=== PATIENT | male | born 1950 | race Caucasian/White ===

== ENCOUNTER 2017-04-13 09:30 | Inpatient (IN) | payer MEDICAID ==
[~2017-04-13] VITALS: Ht 177.8 cm; Wt 98.8 kg
[~2017-04-13 09:30] MED LIST: ALBU8.5H3; ASPI81TA3 PO; ISOS20TA19 PO; METO-448 PO
[2017-04-13] MEDS ORDERED: HYDROmorphONE 1 MG/ML SYG IV STA ×2 (09:52→13:23)
[2017-04-13] MEDS ORDERED: ONDANSETRON 4 MG INJ IV STA ×2 (09:52→13:23)
[2017-04-13 10:14] LABS: BASOPHILS % 0.4 % (0.0-2.0); EOSINOPHILS # 0.1 10^3/ul (0.0-0.5); EOSINOPHILS % 1.2 % (0.0-7.0); HEMATOCRIT 42.4 % (42.0-52.0); HEMOGLOBIN 14.6 g/dl (14.0-18.0); LYMPHOCYTES # 1.3 10^3/ul (0.8-2.9); LYMPHOCYTES % 19.4 % (15.0-51.0); MEAN CORPUSCULAR HEMOGLOBIN 31.3 pg (29.0-33.0); MEAN CORPUSCULAR HGB CONC 34.4 g/dl (32.0-37.0); MEAN PLATELET VOLUME 11.6 fl (7.4-10.4); MONOCYTE # 0.7 10^3/ul (0.3-0.9); MONOCYTES % 10.4 % (0.0-11.0); NEUTROPHIL # 4.7 10^3/ul (1.6-7.5); NEUTROPHILS % 68.3 % (39.0-77.0); PLATELET COUNT 170 10^3/UL (140-415); RED BLOOD COUNT 4.66 10^6/ul (4.70-6.10); WHITE BLOOD COUNT 6.8 10^3/ul (4.8-10.8)
--- NOTE | 2017-04-13 10:28 | ERA ---
ER Documentation Chief Complaint Date/Time DATE: 04/13/17 TIME: 10:27 Chief Complaint ABD PAIN 3 DAYS HPI This is a 66-year-old male who complains of right upper quadrant pain. He says he has a history of gallstones and he feels like he has a gallbladder attack. He is complaining of pain in the epigastric and right upper quadrant with radiation around the right back. He has nausea but no vomiting diarrhea. He states his symptoms for 3 days and the symptoms are worse after meals. No diarrhea but he does have bloating no fever cough shortness of breath chest pain ROS All systems reviewed and are negative except as per history of present illness. Medications Home Meds Reported Medications Aspirin* (Aspirin* Chew) 81 Mg Tab.chew, 81 MG PO DAILY 08/06/12 Isosorbide Dinitrate* (Isosorbide Dinitrate*) 20 Mg Tablet, 20 MG PO TID 08/06/12 Metoprolol Tartrate* (Lopressor*) 25 Mg Tab, 12.5 MG PO BID 08/06/12 Albuterol Sulfate* (Proair HFA*) 8.5 Gm Hfa.aer.ad, PRN 05/05/12 Allergies Allergies: Coded Allergies: Cephalexin (Verified Allergy, 08/06/12) PMhx/Soc History of Surgery: No Anesthesia Reaction: No Hx Neurological Disorder: No Hx Respiratory Disorders: Yes (ASTHMA) Hx Cardiac Disorders: No Hx Psychiatric Problems: No Hx Miscellaneous Medical Probl: Yes (GALLSTONES) Hx Alcohol Use: No Hx Substance Use: No Hx Tobacco Use: No Smoking Status: Never smoker FmHx Family History: No coronary disease Physical Exam Vitals Vital Signs Date Time Temp Pulse Resp B/P Pulse Ox O2 Delivery O2 Flow Rate FiO2 04/13/17 11:34 58 17 134/76 98 Room Air 04/13/17 09:34 98.0 77 18 142/78 99 Physical Exam Const: [Well-developed, well-nourished] Head: [Atraumatic, normocephalic] Eyes: [Normal Conjunctiva, PERRLA, EOMI, normal sclera, no nystagmus] ENT: [Normal External Ears, Nose and Mouth, moist mucus membranes.] Neck: [Full range of motion. No meningismus, no lymphadenopathy.] Resp: [Clear to auscultation bilaterally, no wheezing, rhonchi, rales] Cardio: [Regular rate and rhythm, no murmurs, S1 S2 present] Abd: [Soft, epigastric and right upper quadrant tenderness, non distended. Normal bowel sounds, no guarding or rebound, no pulsitile abdominal masses or bruits] Skin: [No petechiae or rashes, no ecchymosis , no maculopapular rash] Back: [No midline or flank tenderness] Ext: [No cyanosis, or edema, FROM x 4, normal inspection, neurovascularly intact x 4] Neur: [Awake and alert, STR 5/5 x 4, sensation intact x 4, no focal findings, cerebellum intact] Psych: [Normal Mood and Affect] Vital Sign - Last 24 Hours 04/13/17 09:34 Temp 98.0 Pulse 77 Resp 18 B/P 142/78 Pulse Ox 99 Result Diagram: 04/13/17 1000 04/13/17 1000 Results 24 hrs Laboratory Tests Test 04/13/17 10:00 White Blood Count 6.810^3/ul Red Blood Count 4.6610^6/ul Hemoglobin 14.6g/dl Hematocrit 42.4% Mean Corpuscular Volume 91.0fl Mean Corpuscular Hemoglobin 31.3pg Mean Corpuscular Hemoglobin Concent 34.4g/dl Red Cell Distribution Width 12.0% Platelet Count 38771^3/UL Mean Platelet Volume 11.6fl Neutrophils % 68.3% Lymphocytes % 19.4% Monocytes % 10.4% Eosinophils % 1.2% Basophils % 0.4% Nucleated Red Blood Cells % 0.0/100WBC Neutrophils # 4.710^3/ul Lymphocytes # 1.310^3/ul Monocytes # 0.710^3/ul Eosinophils # 0.110^3/ul Basophils # 0.010^3/ul Nucleated Red Blood Cells # 0.010^3/ul Sodium Level 144mmol/L Potassium Level 3.8mmol/L Chloride Level 97mmol/L Carbon Dioxide Level 32mmol/L Anion Gap 19 Blood Urea Nitrogen 24mg/dl Creatinine 0.72mg/dl Glucose Level 158mg/dl Calcium Level 9.5mg/dl Total Bilirubin 1.8mg/dl Direct Bilirubin 0.00mg/dl Indirect Bilirubin 1.8mg/dl Aspartate Amino Transf (AST/SGOT) 378IU/L Alanine Aminotransferase (ALT/SGPT) 243IU/L Alkaline Phosphatase 217IU/L Total Protein 8.1g/dl Albumin 4.4g/dl Globulin 3.70g/dl Albumin/Globulin Ratio 1.18 Lipase 96U/L Current Medications Medications (Trade) Dose Ordered Sig/Charo Route PRN Reason Start Time Stop Time Status Last Admin Dose Admin Hydromorphone HCl (Dilaudid) 1 mg ONCE STAT IV 04/13/17 09:52 04/13/17 09:54 DC 04/13/17 09:58 Ondansetron HCl (Zofran Inj) 4 mg ONCE STAT IV 04/13/17 09:52 04/13/17 09:54 DC 04/13/17 09:58 IV Flush 10 ml 10 ml STK-MED ONCE .ROUTE 04/13/17 12:29 04/13/17 12:30 DC 04/13/17 12:58 Sodium Chloride (NS) 100 ml @ ud STK-MED ONCE .ROUTE 04/13/17 12:29 04/13/17 12:30 DC 04/13/17 12:58 Iohexol (Omnipaque 300mg/ ml) 150 ml STK-MED ONCE .ROUTE 04/13/17 12:29 04/13/17 12:30 DC 04/13/17 12:58 Hydromorphone HCl (Dilaudid) 1 mg ONCE STAT IV 04/13/17 13:23 04/13/17 13:24 DC 04/13/17 13:32 Ondansetron HCl (Zofran Inj) 4 mg ONCE STAT IV 04/13/17 13:23 04/13/17 13:24 DC 04/13/17 13:32 Procedures/MDM PROCEDURE: CT abdomen with and without contrast. Pancreatic protocol. CT pelvis with contrast CLINICAL INDICATION: Suspected pancreatic mass TECHNIQUE: CT scan of the abdomen with an without contrast was performed on a multi-slice CT scanner . The patient was scanned before after administration of 100 cc of Omnipaque-300 intravenous contrast. Imaging was obtained in the arterial and portal venous phase per pancreas protocol. In addition, the pelvis was imaged postcontrast in the portal venous phase. Sagittal and coronal reformatted images were obtained from the axial source images. DLP 2596.9 mGycm. CTDIvol 16.11, 19.6, and 18.3 mGy One or more of the following dose reduction techniques were used: - Automated exposure control. - Adjustment of the mA and/or kV according to patient size. Use of iterative reconstruction technique. COMPARISON: Chest 05/05/2012 FINDINGS: Trace scarring is seen in the lung bases. Coronary artery calcifications are seen in the heart which is mildly enlarged. The gallbladder is contracted with irregular soft tissue thickening enhancement seen throughout the gallbladder which is most pronounced at the fundus which appears to be intimately associated inseparable from the adjacent hepatic parenchyma. There is mild fat stranding seen around the gallbladder with slight hyperenhancement of the common duct. There is a mild amount of intrahepatic biliary ductal dilatation. Coarse calcifications are seen along the hepatic on the prior exam. Previously seen fatty resolved. Is a nonenhancing left hepatic lobe cyst. There is no other evidence of intraparenchymal mass within the liver. The portal vein is intact without thrombus. There is homogeneous density of the pancreas with uniform enhancement. There is moderate fatty replacement of the pancreatic parenchyma. There is no surrounding inflammation and no evidence of abnormal enhancing mass or cystic lesion. There are no enlarged peripancreatic lymph nodes and no evidence of pancreatic ductal dilatation. The spleen is unremarkable without mass. The adrenal glands are within normal limits without mass. The kidneys enhance symmetrically bilaterally without hydronephrosis or perinephric stranding.There are no renal calculi present. There is no bowel obstruction or focal bowel inflammation. The appendix is unremarkable. There is no free air free fluid. There are no enlarged lymph nodes. There is aortic atherosclerosis without aneurysmal dilatation. Degenerative changes are seen in the lumbar spine with no acute osseous abnormality. The prostate is mildly enlarged. RPTAT:AA IMPRESSION: There is irregular thickened appearance of the gallbladder wall which has contracted appearance with generalized enhancement which is most pronounced involving the gallbladder fundus which is intimately associated inseparable from the adjacent hepatic parenchyma. This could represent gallbladder inflammation or the presence of gallbladder neoplasm. There is mild intrahepatic biliary ductal dilatation enlarged appearance of the common duct with hyperenhancement. World can be better assessed with MRCP. There is generalize fatty replacement of the pancreatic parenchyma without a definable pancreatic mass on CT. No evidence of bowel obstruction. Atherosclerotic disease is present with mild cardiomegaly. .Dena Cerda MD, MD Date Time Electronically viewed and signed by .Dena Cerda MD, MD on 04/13/2017 13:41 .J/ CC: ILDA PALAFOX DO Patient has elevated bilirubin and liver function test with a dilated common bile duct at [address] scan does not show any evidence of pancreatic head mass. 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 CLINICAL INDICATION: abdominal pain TECHNIQUE: Multiple real-time images were acquired of the patient's right upper quadrant abdomen and retroperitoneum utilizing a high resolution transducer. COMPARISON: 05/06/2012 , 05/05/12 FINDINGS: The liver demonstrates increased and heterogeneous echogenicity. The liver is normal in size and no focal solid lesions are seen. There is a 9 mm simple cyst in the left lobe of the liver. The liver measures 14.5 cm in length. The portal vein is patent with normal direction of flow. No intrahepatic biliary dilatation is seen. The gallbladder is contracted with multiple calcified stones. There is no pericholecystic fluid or gallbladder wall thickening. The common bile duct measures 13 mm in maximal dimension. There is a possible 3.9 x 2.2 x 2.1 cm hypoechoic mass in the region of the pancreatic head. No free fluid is identified. The right kidney is normal in size, and demonstrate normal echogenicity and cortical thickness. The right kidney measures 11.3 cm in long dimension. There is no evidence of hydronephrosis. There are no kidney stones. RPTAT: AA IMPRESSION: Possible hypoechoic mass in the region of the pancreatic head. Associated dilatation of the CBD measuring 13 mm. Further evaluation with a triple phase pancreas CT is recommended. Cholelithiasis. Fatty infiltration of the liver. Small simple cyst in the left lobe of the liver. A call report was made and the findings discussed with Ilda Ochoa (Jalen) at 04/13/2017 11:38:50 AM. .Onofre Wong MD, Date Time Electronically viewed and signed by .Onofre Wong MD, on 04/13/2017 11: 41 .S/ CC: ILDA PALAFOX DO Departure Diagnosis: Primary Impression: Gallstones Additional Impression: Elevated LFTs Condition: Stable ILDA PALAFOX DO Apr 13, 2017 10:28
[2017-04-13 10:43] LABS: ALBUMIN 4.4 g/dl (3.3-4.9); ALBUMIN/GLOBULIN RATIO 1.18; BILIRUBIN,INDIRECT 1.8 mg/dl (0-1.1); BILIRUBIN,TOTAL 1.8 mg/dl (0.2-1.3); CALCIUM 9.5 mg/dl (8.4-10.2); CREATININE 0.72 mg/dl (0.61-1.24); POTASSIUM 3.8 mmol/L (3.5-5.1); TOTAL PROTEIN 8.1 g/dl (6.1-8.1)
--- NOTE | 2017-04-13 11:41 | RADRPT ---
PROCEDURE: US Abdomen. CLINICAL INDICATION: abdominal pain TECHNIQUE: Multiple real-time images were acquired of the patient's right upper quadrant abdomen a nd retroperitoneum utilizing a high resolution transducer. COMPARISON: 05/06/2012 , 05/05/12 FINDINGS: The liver demonstrates increased and heterogeneous echogenicity. The liver is normal in size and no focal solid lesions are seen. There is a 9 mm simple cyst in the left lobe of the liver. The liver measures 14.5 cm in length. The portal vein is patent with normal direction of flow. No intrahepati c biliary dilatation is seen. The gallbladder is contracted with multiple calcified stones. There is no pericholecystic fluid or gallbladder wall thickening. The common bile duct measures 13 mm in maximal dimension. There is a possible 3.9 x 2.2 x 2.1 cm hypoechoic mass in the region of the pancreatic head. No free fluid is identified. The right kidney is normal in size, and demonstrate normal echogenicity and cortical thickness. The right kidney measures 11.3 cm in long dimension. There is no evidence of hydronephrosis. There are no kidney stones. RPTAT: AA IMPRESSION: Possible hypoechoic mass in the region of the pancreatic head. Associated dilatation of the CBD aston suring 13 mm. Further evaluation with a triple phase pancreas CT is recommended. Cholelithiasis. Fatty infiltration of the liver. Small simple cyst in the left lobe of the liver. A call report was made and the findings discussed with Ilda Ochoa (Jalen) at 04/13/2017 11: 38:50 AM. .Onofre Wong MD, Date Time Electronically viewed and signed by .Onofre Wong MD, MD on 04/13/2017 11:41 .S/
[2017-04-13] MEDS ORDERED: IOHEXOL 300MG/ML 150 ML BTL ONE (12:29)
[2017-04-13] MEDS ORDERED: SOD CHLORIDE 0.9% 100 ML ONE (12:29)
--- NOTE | 2017-04-13 13:41 | RADRPT ---
PROCEDURE: CT abdomen with and without contrast. Pancreatic protocol. CT pelvis with contrast CLINICAL INDICATION: Suspected pancreatic mass TECHNIQUE: CT scan of the abdomen with an without [facility] The patient was scanned before after administration of 100 cc of Omnipaque-300 intravenous con trast. Imaging was obtained in the arterial and portal venous phase per pancreas protocol. In addit ion, the pelvis was imaged postcontrast in the portal venous phase. Sagittal and coronal reformatte d images were obtained from the axial source images. DLP 2596.9 mGycm. CTDIvol 16.11, 19.6, and 18.3 mGy One or more of the following dose reduction techniques were used: - Automated exposure control. - Adjustment of the mA and/or kV according to patient size. Use of iterative reconstruction technique. COMPARISON: Chest 05/05/2012 FINDINGS: Trace scarring is seen in the lung bases. Coronary artery calcifications are seen in the heart whic h is mildly enlarged. The gallbladder is contracted with irregular soft tissue thickening enhancement seen throughout the gallbladder which is most pronounced at the fundus which appears to be intimately associated insepar able from the adjacent hepatic parenchyma. There is mild fat stranding seen around the gallbladder with slight hyperenhancement of the common duct. There is a mild amount of intrahepatic biliary uri samara dilatation. Coarse calcifications are seen along the hepatic on the prior exam. Previously see n fatty resolved. Is a nonenhancing left hepatic lobe cyst. There is no other evidence of intrapar enchymal mass within the liver. The portal vein is intact without thrombus. There is homogeneous density of the pancreas with uniform enhancement. There is moderate fatty repl acement of the pancreatic parenchyma. There is no surrounding inflammation and no evidence of abnor mal enhancing mass or cystic lesion. There are no enlarged peripancreatic lymph nodes and no eviden ce of pancreatic ductal dilatation. The spleen is unremarkable without mass. The adrenal glands are within normal limits without mass. The kidneys enhance symmetrically bilaterally without hydronephrosis or perinephric stranding.There are no renal calculi present. There is no bowel obstruction or focal bowel inflammation. The appendix is unremarkable. There is no free air free fluid. There are no enlarged lymph nodes. There is aortic atherosclerosis without aneurysmal dilatation. Degenerative changes are seen in t he lumbar spine with no acute osseous abnormality. The prostate is mildly enlarged. RPTAT:AA IMPRESSION: There is irregular thickened appearance of the gallbladder wall which has contracted appearance with generalized enhancement which is most pronounced involving the gallbladder fundus which is intimate ly associated inseparable from the adjacent hepatic parenchyma. This could represent gallbladder in flammation or the presence of gallbladder neoplasm. There is mild intrahepatic biliary ductal dilatation enlarged appearance of the common duct with hyp erenhancement. World can be better assessed with MRCP. There is generalize fatty replacement of the pancreatic parenchyma without a definable pancreatic ma ss on CT. No evidence of bowel obstruction. Atherosclerotic disease is present with mild cardiomegaly. .Dena Cerda MD, MD Date Time Electronically viewed and signed by .Dena Cerda MD, on 04/13/2017 13:41 .Mark/
[2017-04-13] MEDS: SOD CHLORIDE 0.9% 1,000 ML IV SCH ×2 (13:58→17:18)
[2017-04-13] MEDS ORDERED: ACETAMINOPHEN 325 MG TAB PO PRN (14:00)
[2017-04-13] MEDS ORDERED: ONDANSETRON 4 MG INJ IV PRN ×2 (14:00→16:00)
--- NOTE | 2017-04-13 14:51 | CONS ---
Date/Time of Note Date/Time of Note DATE: 04/13/17 TIME: 14:29 Assessment/Plan Assessment/Plan Additional Assessment/Plan Assessment * Abdominal pain right upper quadrant Ultrasound Possible hypoechoic mass in the region of the pancreatic head. Associated dilatation of the CBD measuring 13 mm. Further evaluation with a triple phase pancreas CT is recommended. Cholelithiasis. Fatty infiltration of the liver. Small simple cyst in the left lobe of the liver. CT abdomen/pelvis There is irregular thickened appearance of the gallbladder wall There is mild intrahepatic biliary ductal dilatation enlarged appearance of the common duct with hyperenhancement. World can be better assessed with MRCP. There is generalize fatty replacement of the pancreatic parenchyma without a definable pancreatic mass on CT. * Elevated transaminase * Hypertension * History of asthma Plan * Pain control * NPO * MRCP * Case discussed with DR Henry * Further orders will depend on clinical course Consultation Date/Type/Reason Admit Date/Time Date of Consultation: Apr 13, 2017 Type of Consultation: Gastroenterology Reason for Consultation elevated tranaminase/suspected pancreatic mass Referring Provider: VARGAS PALAFOX of Present Illness 66 year old male with past medical history of hypertension,prediabetes presented in the emergency room complaining right upper quadrant pain.Present condition apparently started 3 days prior to consult as right upper quadrant and epigastric pain ,colicky,radiating to the back with associated nausea but no vomiting,fever,hematemesis,hematochezia,dyspnea,changes of bowel habits,nor intake of medications such as herbal medicines.Laboratory workup revealed WBC 8.8 ,no anemia hemoglobin 14.6,elevated transaminases Total bilirubin 1.8,AST 378,ALT 243,Alkaline phosphatase 217,lipase 96.Ultrasound Possible hypoechoic mass in the region of the pancreatic head. Associated dilatation of the CBD measuring 13 mm.Further evaluation with a triple phase pancreas CT is recommended.Cholelithiasis.Fatty infiltration of the liver. Small simple cyst in the left lobe of the liver.CT abdomen There is irregular thickened appearance of the gallbladder wall which has contracted appearance with generalized enhancement which is most pronounced involving the gallbladder fundus which is intimately associated inseparable from the adjacent hepatic parenchyma. This could represent gallbladder inflammation or the presence of gallbladder neoplasm. There is mild intrahepatic biliary ductal dilatation enlarged appearance of the common duct with hyperenhancement. World can be better assessed with MRCP. There is generalize fatty replacement of the pancreatic parenchyma without a definable pancreatic mass on CT. No evidence of bowel obstruction. Atherosclerotic disease is present with mild cardiomegaly. Constitutional: improved, no complaints Eyes: no complaints ENT: no complaints Respiratory: no complaints Cardiovascular: no complaints Gastrointestinal: nausea, pain Genitourinary: no complaints Musculoskeletal: no complaints Skin: no complaints Neurologic: no complaints Endocrine: no complaints Lymphatic: no complaints Psychological: nl mood/affect, no complaints Immunologic: no complaints Past Medical History Medical History: hypertension, other (asthma) Past Surgical History Past Surgical Hx: no surgical history Family History Significant Family History: no pertinent family hx Social History Alcohol Use: rarely Smoking Status: Never smoker Exam/Review of Systems Vital Signs Vitals Vital Signs Date Time Temp Pulse Resp B/P Pulse Ox O2 Delivery O2 Flow Rate FiO2 04/13/17 11:34 58 17 134/76 98 Room Air 04/13/17 09:34 98.0 Exam Constitutional: alert, oriented, well developed Psych: nl mood/affect, no complaints Head: atraumatic, normocephalic Eyes: EOMI, PERRL, nl conjunctiva, nl lids, nl sclera ENMT: nl external ears & nose, nl lips & teeth, nl nasal mucosa & septum Neck: non-tender, supple Respiratory: clear to auscultation, normal air movement Cardiovascular: nl pulses, regular rate and rhythm Gastrointestinal: nl liver, spleen, soft, tender (right upper ) Musculoskeletal: nl extremities to inspection, nl gait and stance Extremities: normal pulses Neurological: nl mental status, nl speech, nl strength Skin: nl turgor, No rash or lesions Lymph: nl lymph nodes Results Result Diagram: 04/13/17 1000 04/13/17 1000 Results 24 hrs Laboratory Tests Test 04/13/17 10:00 White Blood Count 6.8 Red Blood Count 4.66 L Hemoglobin 14.6 Hematocrit 42.4 Mean Corpuscular Volume 91.0 Mean Corpuscular Hemoglobin 31.3 Mean Corpuscular Hemoglobin Concent 34.4 Red Cell Distribution Width 12.0 Platelet Count 170 Mean Platelet Volume 11.6 H Neutrophils % 68.3 Lymphocytes % 19.4 Monocytes % 10.4 Eosinophils % 1.2 Basophils % 0.4 Nucleated Red Blood Cells % 0.0 Neutrophils # 4.7 Lymphocytes # 1.3 Monocytes # 0.7 Eosinophils # 0.1 Basophils # 0.0 Nucleated Red Blood Cells # 0.0 Sodium Level 144 Potassium Level 3.8 Chloride Level 97 Carbon Dioxide Level 32 H Anion Gap 19 H Blood Urea Nitrogen 24 H Creatinine 0.72 Glucose Level 158 Calcium Level 9.5 Total Bilirubin 1.8 H Direct Bilirubin 0.00 Indirect Bilirubin 1.8 H Aspartate Amino Transf (AST/SGOT) 378 H Alanine Aminotransferase (ALT/SGPT) 243 H Alkaline Phosphatase 217 H Total Protein 8.1 Albumin 4.4 Globulin 3.70 H Albumin/Globulin Ratio 1.18 Lipase 96 Medications Medications Current Medications Sodium Chloride (NS) 1,000 ml @ 80 mls/hr [id number] IV ; Start 04/13/17 at 13:58 ; Stop 04/14/17 at 02:27 LUIS GAMBLE NP Apr 13, 2017 14:39
[2017-04-13] MEDS ORDERED: morphine 2 MG INJ IV STA (15:20)
[2017-04-13 15:22] VITALS: BP 140/93; PULSE 69; RESP 18
[2017-04-13 15:32] VITALS: Ht 177.8 cm; Wt 98.8 kg
[2017-04-13 15:39] VITALS: BP 140/93; RESP 19
--- NOTE | 2017-04-13 15:45 | HP ---
Date/Time of Note Date/Time of Note DATE: 04/13/17 TIME: 15:43 Assessment/Plan VTE Prophylaxis VTE Prophylaxis Intervention: SCD's Lines/Catheters IV [facility] Saline Lock Assessment/Plan Chief Complaint/Hosp Course 1. Abdominal pain. Imaging showing cholelithiasis. Imaging also revealed possible hypoechoic mass in the region of the pancreatic head with associated common bile duct dilatation. The patient will be kept n.p.o. The patient will be given adequate pain control. Gastroenterology consult and surgical consult has been obtained. MRCP will be obtained. 2. Transaminitis. Most probably secondary to #1. Gastroenterology and surgery consult has been obtained. 3. Essential hypertension. The patient will be started on appropriate antihypertensives. 4. History of abnormal cardiac stress test. The patient denies any cardiac problems. The patient's aspirin will be put on hold because of a any possible interventions in the near future. 5. Asthma. Patient has no evidence of any acute bronchospasms. He will be maintained on as needed inhaled bronchodilators for any episodes of dyspnea. 6. Obesity. BMI of 31.3 kg/m. Fasting lipid panel and hemoglobin A1c will be obtained. Plan: The patient will be admitted to inpatient medical surgical floor. The patient will be kept n.p.o. . The patient will be started on DVT prophylaxis and gastrointestinal prophylaxis. The patient will remain a full code. Activities will be as tolerated. The rest of the patient's management will be based on the clinical course, inputs from consultants, and the results of diagnostic studies. Based on the patient's clinical presentation, he most probably requires at least 2 midnights' stay for further management and evaluation of his clinical presentation. The case and management of this patient was fully discussed with Dr. Graff. Problems: HPI/ROS Admit Date/Time Admit Date/Time Hx of Present Illness Reason for admission: Abdominal pain. Consultants 1. Tolu Henry MD, Gastroenterology. 2. Ryan Monahan MD, General Surgery. This is a 66-year-old Indonesian-speaking male with past medical history of essential hypertension, asthma, cholelithiasis who had refused gallbladder surgery before, and abnormal cardiac stress test who refused cardiac catheterization before, who came to the emergency room with chief complaint of abdominal pain that has been going on for the past 3 days. The patient verbalized the abdominal pain as diffuse. The patient verbalized the pain radiating to the back. The patient verbalized associated nausea but he denied any vomiting. Patient verbalized that the symptoms are worse after he has anything by mouth. The patient denied any diarrhea. He complained of bloating. He denied any fevers, chills, or diaphoresis. The patient denied any dyspnea. In the emergency room, the patient was noticed to have hyperbilirubinemia with transaminitis. The patient underwent a gallbladder ultrasound that showed possible hypoechoic mass in the region of the pancreatic head. There was also associated dilatation of the common bile duct measuring 13 mm. The abdominal ultrasound revealed cholelithiasis. The patient subsequently underwent a CT scan of the abdomen and pelvis that showed irregular thickened appearance of the gallbladder wall which has contracted appearance with generalized enhancement which is most pronounced involving the gallbladder fundus which is intimately associated inseparable from the adjacent hepatic parenchyma. This could represent gallbladder inflammation or the presence of a gallbladder neoplasm. There is mild intrahepatic biliary ductal dilatation and enlarged appearance of the common bile duct. ROS Eyes: no complaints ENT: no complaints Respiratory: no complaints Cardiovascular: no complaints Gastrointestinal: nausea, pain Genitourinary: no complaints Musculoskeletal: no complaints Skin: no complaints Neurologic: no complaints Endocrine: no complaints Lymphatic: no complaints Psychological: nl mood/affect, no complaints Immunologic: no complaints PMH/Family/Social Past Medical History Medical History: hypertension, other (Asthma, pre-diabetes, cholelithiasis) Past Surgical History Past Surgical Hx: no surgical history Social History Alcohol Use: rarely Smoking Status: Never smoker Drug Use: none Exam/Review of Systems Vital Signs Vitals Vital Signs Date Time Temp Pulse Resp B/P Pulse Ox O2 Delivery O2 Flow Rate FiO2 04/13/17 15:39 97.5 69 19 140/93 96 04/13/17 15:22 Room Air Exam Exam General: Morbidly obese 66 year-old male lying in bed in no apparent distress. HEENT: Normocephalic, atraumatic. Eyes: Anicteric sclerae, conjunctivae clear. ENT: Nasal septum midline, oral mucosa moist. Neck supple, no JVD noticed. Respiratory: Bilaterally clear breath sounds. No use of accessory muscles of respiration. No adventitious breath sounds. Cardiovascular: S1, S2 heard. No murmurs or gallops. Abdomen: Soft. Obese. Diffuse tenderness. Bowel sounds positive in all 4 quadrants. Genitourinary: Deferred. Extremities: No cyanosis, no clubbing, no edema. Peripheral pulses palpable. Neurologic: Cranial nerves II through XII grossly intact. The patient is awake, alert, and oriented. Skin: Normal skin turgor. No skin rashes. Labs Result Diagram: 04/13/17 1000 04/13/17 1000 Medications Medications Current Medications Sodium Chloride (NS) 1,000 ml @ 80 mls/hr [id number] IV ; Start 04/13/17 at 13:58 ; Stop 04/14/17 at 02:27 Ondansetron HCl (Zofran Inj) 4 mg Q6H PRN IV NAUSEA AND/OR VOMITING; Start at 16:00; Status UNV Morphine Sulfate (morphine) 4 mg Q4H PRN IV SEVERE PAIN LEVEL 7-10; Start 04/13 at 16:00; Status UNV Famotidine (Pepcid Iv) 20 mg Q12 IV ; Start 04/13/17 at 21:00; Status UNV Procedures Procedures CT Abdomen & Pelvis IMPRESSION: There is irregular thickened appearance of the gallbladder wall which has contracted appearance with generalized enhancement which is most pronounced involving the gallbladder fundus which is intimately associated inseparable from the adjacent hepatic parenchyma. This could represent gallbladder inflammation or the presence of gallbladder neoplasm. There is mild intrahepatic biliary ductal dilatation enlarged appearance of the common duct with hyperenhancement. World can be better assessed with MRCP. There is generalize fatty replacement of the pancreatic parenchyma without a definable pancreatic mass on CT. No evidence of bowel obstruction. Atherosclerotic disease is present with mild cardiomegaly. Gallbladder Ultrasound IMPRESSION: Possible hypoechoic mass in the region of the pancreatic head. Associated dilatation of the CBD measuring 13 mm. Further evaluation with a triple phase pancreas CT is recommended. Cholelithiasis. Fatty infiltration of the liver. Small simple cyst in the left lobe of the liver. ADONIS BLANCO NP Apr 13, 2017 15:45
[2017-04-13] MEDS ORDERED: NACL 0.9% 3 ML SYG IV SCH (16:00)
[2017-04-13 16:52] VITALS: BP 143/90; RESP 19
[2017-04-13 16:55] LABS: BARBITURATES Negative (NEGATIVE); BENZODIAZEPINES Negative (NEGATIVE); CANNABINOIDS Negative (NEGATIVE); COCAINE Negative (NEGATIVE); OPIATES Positive (NEGATIVE)
[2017-04-13] MEDS ORDERED: ALBUTEROL 18 GM INHALER INH PRN (17:00)
[2017-04-13] MEDS: morphine 2 MG INJ IV PRN ×2 (17:18→23:17)
--- NOTE | 2017-04-13 17:25 | RADRPT ---
PROCEDURE: MRI abdomen without contrast; MRCP CLINICAL INDICATION: Abnormal CT TECHNIQUE: Multiplanar, multisequence imaging of the abdomen was obtained without contrast. Imagi ng includes axial T2, T2 fat sat, in and out of phase gradient images, and noncontrast T1 fat-satura danii images. In addition, a dedicated high T2 signal intensity MRCP images were obtained in multiple planes with 3-D reconstructions. COMPARISON: CT abdomen 04/13/2017 FINDINGS: MRCP: Then seen is contracted and thickened appearance of the gallbladder. There is a gallstones seen wit hin the gallbladder fundus measuring 7 mm. There is mild intrahepatic and extrahepatic diffuse bili venecia ductal enlargement of the common duct measures up to 11 mm. There is a stone within the distal common duct that measures 10 mm causing obstruction. There is no pancreatic ductal dilatation. MRI abdomen: There is diffuse fatty replacement majority of the pancreas without evidence of gross focal lesion. No surrounding peripancreatic inflammatory changes are present. There is uniform signal intensity of the liver without gross evidence of mass. There is a T2 hyperintense structure within the left he patic lobe consistent with a cyst. Evaluation for enhancing masses is limited without IV contrast. There is a flow void seen within the portal vein without gross evidence for portal vein thrombus. The kidneys are symmetric without hydronephrosis or mass. Left-sided renal cyst is present. The adr enal glands are within normal limits. The pancreas is uniform without surrounding inflammation. There is no evidence of bowel obstruction or inflammatory changes of the mesentery. Aortic atheroscl erosis is seen. There are degenerative changes within the lumbar spine. IMPRESSION: Mild diffuse intrahepatic and extrahepatic biliary ductal dilatation is seen secondary to obstructio n secondary to a 10 mm distal common duct stone. The gallbladder is contracted around a gallstone with continued gallbladder wall thickening. Fatty replacement of the majority the pancreatic parenchyma. Atherosclerotic disease. RPTAT: AA .Dena Cerda MD, MD Date Time Electronically viewed and signed by .Dena Cerda MD, MD on 04/13/2017 17:24 .Mark/
[2017-04-13] MEDS ORDERED: PIPER-TAZO 3.375 GM IV (PMX) 100 ML IVPB SCH (18:00)
[2017-04-13] MEDS: PIPER-TAZO 3.375 GM IV (PMX) 100 ML IVPB SCH ×2 (18:04→23:34)
[2017-04-13 19:40] VITALS: BP 96/61; RESP 19
[2017-04-13] MEDS: FAMOTIDINE 20 MG TAB PO SCH (20:34)
[2017-04-13 20:55] VITALS: BP_SYST 80; BP_SYST 86; BP_DIAS 49; BP_DIAS 64; PULSE 133; PULSE 143; RESP 19; RESP 20
[2017-04-13] MEDS ORDERED: SOD CHLORIDE 0.9% 1,000 ML IV ONE ×2 (21:00→23:30)
[2017-04-13] MEDS: ISOSORBIDE DINITRATE 20 MG TAB PO SCH (21:00)
[2017-04-13] MEDS: METOPROLOL 25 MG TAB PO SCH (21:00)
[2017-04-13 23:02] VITALS: BP 107/70; PULSE 99; RESP 20
[2017-04-14] VITALS (26 sets, daily range): BP systolic 95–139; BP diastolic 60–82; PULSE 85–110; RESP 14–28
[2017-04-14] MEDS ORDERED: IBUPROFEN 600 MG TAB PO ONE (02:30)
[2017-04-14] MEDS: SOD CHLORIDE 0.9% 1,000 ML IV SCH ×2 (02:43→11:54)
[2017-04-14] MEDS: PIPER-TAZO 3.375 GM IV (PMX) 100 ML IVPB SCH ×4 (05:28→23:51)
[2017-04-14 05:44] LABS: ABNORMAL IP MESSAGE 1; BASOPHILS % 0.1 % (0.0-2.0); HEMATOCRIT 37.6 % (42.0-52.0); HEMOGLOBIN 12.7 g/dl (14.0-18.0); LYMPHOCYTES # 0.3 10^3/ul (0.8-2.9); LYMPHOCYTES % 2.5 % (15.0-51.0); MEAN CORPUSCULAR HEMOGLOBIN 31.1 pg (29.0-33.0); MEAN CORPUSCULAR HGB CONC 33.8 g/dl (32.0-37.0); MEAN CORPUSCULAR VOLUME 91.9 fl (82.0-101.0); MEAN PLATELET VOLUME 11.9 fl (7.4-10.4); MONOCYTE # 0.3 10^3/ul (0.3-0.9); MONOCYTES % 2.5 % (0.0-11.0); NEUTROPHIL # 10.2 10^3/ul (1.6-7.5); POSITIVE DIFF @See below; RED BLOOD COUNT 4.09 10^6/ul (4.70-6.10); RED CELL DISTRIBUTION WIDTH 12.6 % (11.5-14.5); WHITE BLOOD COUNT 10.8 10^3/ul (4.8-10.8)
[2017-04-14 05:51] LABS: PLATELET COUNT 135 10^3/UL (140-415)
[2017-04-14 05:54] LABS: INR 1.25; PROTIME 15.8 Sec (12.2-14.2); PT RATIO 1.2
[2017-04-14 05:55] LABS: PARTIAL THROMBOPLASTIN TIME 28.1 Sec (25.0-35.0)
[2017-04-14 06:01] LABS: CHOL/HDL RATIO 2.1 RATIO; MAGNESIUM 1.6 mg/dl (1.7-2.5); PHOSPHORUS 3.6 mg/dl (2.5-4.9)
[2017-04-14 06:11] LABS: ALBUMIN 3.7 g/dl (3.3-4.9); ALBUMIN/GLOBULIN RATIO 1.12; BILIRUBIN,DIRECT 1.3 mg/dl (0.00-0.20); BILIRUBIN,INDIRECT 3.3 mg/dl (0-1.1); BILIRUBIN,TOTAL 4.6 mg/dl (0.2-1.3); CREATININE 0.95 mg/dl (0.61-1.24); POTASSIUM 3.5 mmol/L (3.5-5.1)
[2017-04-14] MEDS ORDERED: SUCCINYLCHOLINE CHLORIDE 100 MG/5 ML SYG IV ONE (07:00)
[2017-04-14] MEDS ORDERED: ASPIRIN 81 MG TAB PO SCH (09:00)
[2017-04-14] MEDS: ISOSORBIDE DINITRATE 20 MG TAB PO SCH ×3 (09:00→21:00)
[2017-04-14] MEDS: METOPROLOL 25 MG TAB PO SCH ×2 (09:00→21:00)
--- NOTE | 2017-04-14 09:05 | CONS ---
Date/Time of Note Date/Time of Note DATE: 04/14/17 TIME: 08:24 Assessment/Plan Assessment/Plan Chief Complaint/Hosp Course 1. Choledocholithiasis: MRCP: Mild diffuse intrahepatic and extrahepatic biliary ductal dilatation is seen secondary to obstruction secondary to a 10 mm distal common duct stone -npo -ercp per gi -pain management 2. Cholelithiasis with cholecystitis: wbc increasing, fevers, abdominal pain, gallbladder wall thickening -abx -as above -poss cholecystectomy 3. Transaminitis: 2/2 above increasing -as above 4. Normocytic anemia: likely dilutional -monitor and transfuse as needed 5. Pancreatic lipomatosis: MRCP: Fatty replacement of the majority the pancreatic parenchyma -weight loss encouraged -medical management 6. Prediabetes with Hga1C:6.4 -diet and lifestyle modification -weight loss encouraged 7. Obesity: BMI 31 -diet and lifestyle modification 8.Asthma history -medical management Patient seen and examined in collaboration with Dr. Ryan Monahan. Thank you. Problems: Consultation Date/Type/Reason Admit Date/Time Date of Consultation: Apr 14, 2017 Type of Consultation: surgical Reason for Consultation cholelithiasis, cholecystitis Referring Provider: ADONIS BLANCO NP Hx of Present Illness Jasvir Parham is a 66 yo man who presented to the emergency room with chief complaint of abdominal pain x 3 days. He describes abdominal pain as diffuse with radiation to the back. Associated symptoms include nausea and bloating but he denied any vomiting or diarrhea. He denied any fevers, chills, or diaphoresis, dyspnea. Aggrevating symptoms include meals. Lab work revealed hyperbilirubinemia with transaminitis. Gallbladder ultrasound that showed possible hypoechoic mass in the region of the pancreatic head. There was also associated dilatation of the common bile duct measuring 13 mm. The abdominal ultrasound revealed cholelithiasis and a possible hypoechoic mass in the region of the pancreatic head. CT scan of the abdomen and pelvis that showed irregular thickened appearance of the gallbladder wall patient has a contracted appearance with generalized enhancement which is most pronounced involving the gallbladder fundus with associated interrupted inseparable from the adjacent hepatic parenchyma. This could represent gallbladder inflammation or the presence of a gallbladder neoplasm. Surgical consult was called to evaluate. Constitutional: No chills, No febrile Eyes: No visual change ENT: No sore throat Respiratory: No cough, No shortness of breath Cardiovascular: No edema, No lightheadedness Gastrointestinal: nausea, pain, No constipation, No vomiting Genitourinary: No dysuria, No hematuria Musculoskeletal: No bone/joint pain Skin: No bruising, No erythema Neurologic: No dizziness, No headache Psychological: nl mood/affect Immunologic: no complaints Past Medical History Medical History: hypertension, other (Asthma, pre-diabetes, cholelithiasis, obesity) Past Surgical History Past Surgical Hx: no surgical history Family History Significant Family History: no pertinent family hx Social History Alcohol Use: rarely Smoking Status: Never smoker Drug Use: none Exam/Review of Systems Vital Signs Vitals Vital Signs Date Time Temp Pulse Resp B/P Pulse Ox O2 Delivery O2 Flow Rate FiO2 04/14/17 08:13 98.0 71 19 101/60 98 04/14/17 02:36 Room Air Intake and Output 04/13/17 04/13/17 04/14/17 15:00 23:00 07:00 Intake Total 420 ml 2400 ml Output Total 400 ml 400 ml Balance 20 ml 2000 ml Exam Constitutional: alert, oriented, well developed Psych: nl mood/affect Head: atraumatic, normocephalic Eyes: nl lids, nl sclera ENMT: mucosa pink and moist, nl nasal mucosa & septum Respiratory: normal air movement Cardiovascular: nl pulses, regular rate and rhythm, No edema Gastrointestinal: bowel sounds, other (umbilical hernia), rebound or guarding, soft, tender Genitourinary - Male: nl penis Musculoskeletal: nl extremities to inspection Extremities: normal pulses Neurological: nl mental status, nl speech, nl strength Skin: rash or lesions Results Result Diagram: 04/14/1751104/14/17511 Results 24 hrs Laboratory Tests Test 04/13/17 10:00 04/13/17 16:09 04/13/17 16:11 04/13/17 16:15 White Blood Count 6.8 Red Blood Count 4.66 L Hemoglobin 14.6 Hematocrit 42.4 Mean Corpuscular Volume 91.0 Mean Corpuscular Hemoglobin 31.3 Mean Corpuscular Hemoglobin Concent 34.4 Red Cell Distribution Width 12.0 Platelet Count 170 Mean Platelet Volume 11.6 H Neutrophils % 68.3 Lymphocytes % 19.4 Monocytes % 10.4 Eosinophils % 1.2 Basophils % 0.4 Nucleated Red Blood Cells % 0.0 Neutrophils # 4.7 Lymphocytes # 1.3 Monocytes # 0.7 Eosinophils # 0.1 Basophils # 0.0 Nucleated Red Blood Cells # 0.0 Sodium Level 144 Potassium Level 3.8 Chloride Level 97 Carbon Dioxide Level 32 H Anion Gap 19 H Blood Urea Nitrogen 24 H Creatinine 0.72 Glucose Level 158 Calcium Level 9.5 Total Bilirubin 1.8 H Direct Bilirubin 0.00 Indirect Bilirubin 1.8 H Aspartate Amino Transf (AST/SGOT) 378 H Alanine Aminotransferase (ALT/SGPT) 243 H Alkaline Phosphatase 217 H Total Protein 8.1 Albumin 4.4 Globulin 3.70 H Albumin/Globulin Ratio 1.18 Lipase 96 Hemoglobin A1c 6.4 H Alpha Fetoprotein 2.14 Carcinoembryonic Antigen 3.5 Free Thyroxine 1.51 Thyroid Stimulating Hormone (TSH) 2.150 Urine Opiates Screen Positive Urine Barbiturates Negative Urine Amphetamines Screen Negative Urine Benzodiazepines Screen Negative Urine Cocaine Screen Negative Urine Cannabinoids Negative Test 04/14/17 05:11 04/14/17 05:12 Prothrombin Time 15.8 H Prothrombin Time Ratio 1.2 INR International Normalized Ratio 1.25 Activated Partial Thromboplast Time 28.1 White Blood Count 10.8 # Red Blood Count 4.09 L Hemoglobin 12.7 L Hematocrit 37.6 L Mean Corpuscular Volume 91.9 Mean Corpuscular Hemoglobin 31.1 Mean Corpuscular Hemoglobin Concent 33.8 Red Cell Distribution Width 12.6 Platelet Count 135 #L Mean Platelet Volume 11.9 H Neutrophils % 94.0 H Lymphocytes % 2.5 L Monocytes % 2.5 Eosinophils % 0.0 Basophils % 0.1 Nucleated Red Blood Cells % 0.0 Neutrophils # 10.2 H Lymphocytes # 0.3 L Monocytes # 0.3 Eosinophils # 0.0 Basophils # 0.0 Nucleated Red Blood Cells # 0.0 Sodium Level 140 Potassium Level 3.5 Chloride Level 105 Carbon Dioxide Level 24 Anion Gap 15 Blood Urea Nitrogen 20 Creatinine 0.95 Glucose Level 104 # Calcium Level 8.0 L Phosphorus Level 3.6 Magnesium Level 1.6 L Total Bilirubin 4.6 #H Direct Bilirubin 1.30 #H Indirect Bilirubin 3.3 H Aspartate Amino Transf (AST/SGOT) 488 H Alanine Aminotransferase (ALT/SGPT) 594 H Alkaline Phosphatase 183 H Total Protein 7.0 # Albumin 3.7 Globulin 3.30 H Albumin/Globulin Ratio 1.12 Triglycerides Level 58 Cholesterol Level 76 L LDL Cholesterol, Calculated 29 HDL Cholesterol 35 Cholesterol/HDL Ratio 2.1 Amylase Level 53 Lipase 28 Medications Medications Current Medications Ondansetron HCl (Zofran Inj) 4 mg Q6H PRN IV NAUSEA AND/OR VOMITING; Start at 16:00 Morphine Sulfate (morphine) 4 mg Q4H PRN IV SEVERE PAIN LEVEL 7-10 Last administered on 04/13/17 23:17; Admin Dose 4 MG; Start 04/13/17 at 16:00 Famotidine (Pepcid) 20 mg Q12 PO Last administered on 04/13/17 20:34; Admin Dose 20 MG; Start 04/13/17 at 21:00 Isosorbide Dinitrate (Isordil) 20 mg TID PO ; Start 04/13/17 at 21:00 Metoprolol Tartrate 12.5 mg 12.5 mg BID PO ; Start 04/13/17 at 21:00 Piperacillin Sod/ Tazobactam Sod 100 ml @ 200 mls/hr Q6 IVPB Last administered on 04/14/17 05:28; Admin Dose 200 MLS/HR; Start 04/13/17 at 18:30 Sodium Chloride (NS) 1,000 ml @ 80 mls/hr [id number] IV Last administered on 04/14 02:43; Admin Dose 80 MLS/HR; Start 04/14/17 at 03:00 SJ HOWELL NP Apr 14, 2017 08:34
[2017-04-14] MEDS: FAMOTIDINE 20 MG TAB PO SCH (09:26)
[2017-04-14] MEDS: KETOROLAC 30 MG INJ IV PRN (11:26)
[2017-04-14] MEDS ORDERED: MAGNESIUM SULFATE 2 GM/50 ML 50 ML IVPB ONE (11:30)
[2017-04-14] MEDS: morphine 2 MG INJ IV PRN (12:19)
[2017-04-14] MEDS ORDERED: hydrALAzine 20 MG INJ IV PRN ×2 (12:30→19:30)
[2017-04-14] MEDS ORDERED: HYDROmorphONE 1 MG/ML SYG IV ONE (12:30)
[2017-04-14] MEDS ORDERED: ACETAMINOPHEN 325 MG TAB PO PRN (12:30)
[2017-04-14] MEDS: ALBUTEROL/IPRATROPIUM (NEB) 3 ML AMP HHN PRN (12:47)
--- NOTE | 2017-04-14 14:54 | PN ---
Date/Time of Note Date/Time of Note DATE: 04/14/17 TIME: 14:48 Assessment/Plan VTE Prophylaxis VTE Prophylaxis Intervention: ambulation, SCD's Lines/Catheters IV Catheter Type (from [facility]): Peripheral IV Assessment/Plan Chief Complaint/Hosp Course Assessment and plan 1. Abdominal pain. Patient did have MRI of the abdomen that did show mild diffuse intrahepatic and extra hepatic biliary ductal dilation secondary to a 10 mm distal common duct stone. Follow-up with GI recommendations. Likely will need ERCP. 2. Transaminitis secondary to #1. Continue IV fluids. Await GI input. 2. Essential hypertension. Continue antihypertensives and adjust as needed 4. History of normal cardiac stress test. Patient aspirin on hold for now due to possibility of ERCP 5. History of asthma. Placed on DuoNeb. Start Advair. 6. Obesity. Weight reduction to be advised for 7. Hypomagnesemia. To be repleted. Disposition and plan: Continue IV fluids for now. Continue with analgesics. Bronchodilators for asthma. Await GI input. Discussed plan of care with Dr. Mccabe Problems: Subjective 24 Hr Interval Summary Free Text/Dictation Still reports some pain on right upper abdominal quadrant Exam/Review of Systems Vital Signs Vitals Vital Signs Date Time Temp Pulse Resp B/P Pulse Ox O2 Delivery O2 Flow Rate FiO2 04/14/17 13:13 100.7 105 16 124/72 95 Room Air 04/14/17 12:47 21 Intake and Output 04/13/17 04/13/17 04/14/17 15:00 23:00 07:00 Intake Total 420 ml 2400 ml Output Total 400 ml 400 ml Balance 20 ml 2000 ml Exam Constitutional: alert, oriented Psych: anxiety Head: normocephalic Neck: supple, No jvd Respiratory: wheezing Cardiovascular: other (regular rate to tachycardic ) Gastrointestinal: soft, tender Musculoskeletal: nl gait and stance Neurological: [employer]GER II-XII intact, nl mental status, nl speech Skin: nl turgor Results Result Diagram: 04/14/17 0512 04/14/17 0512 Results 24 hrs Laboratory Tests Test 04/13/17 16:09 04/13/17 16:11 04/13/17 16:15 04/14/17 05:11 Hemoglobin A1c 6.4 H Alpha Fetoprotein 2.14 Carcinoembryonic Antigen 3.5 Free Thyroxine 1.51 Thyroid Stimulating Hormone (TSH) 2.150 Urine Opiates Screen Positive Urine Barbiturates Negative Urine Amphetamines Screen Negative Urine Benzodiazepines Screen Negative Urine Cocaine Screen Negative Urine Cannabinoids Negative Prothrombin Time 15.8 H Prothrombin Time Ratio 1.2 INR International Normalized Ratio 1.25 Activated Partial Thromboplast Time 28.1 Test 04/14/17 05:12 White Blood Count 10.8 # Red Blood Count 4.09 L Hemoglobin 12.7 L Hematocrit 37.6 L Mean Corpuscular Volume 91.9 Mean Corpuscular Hemoglobin 31.1 Mean Corpuscular Hemoglobin Concent 33.8 Red Cell Distribution Width 12.6 Platelet Count 135 #L Mean Platelet Volume 11.9 H Neutrophils % 94.0 H Lymphocytes % 2.5 L Monocytes % 2.5 Eosinophils % 0.0 Basophils % 0.1 Nucleated Red Blood Cells % 0.0 Neutrophils # 10.2 H Lymphocytes # 0.3 L Monocytes # 0.3 Eosinophils # 0.0 Basophils # 0.0 Nucleated Red Blood Cells # 0.0 Sodium Level 140 Potassium Level 3.5 Chloride Level 105 Carbon Dioxide Level 24 Anion Gap 15 Blood Urea Nitrogen 20 Creatinine 0.95 Glucose Level 104 # Calcium Level 8.0 L Phosphorus Level 3.6 Magnesium Level 1.6 L Total Bilirubin 4.6 #H Direct Bilirubin 1.30 #H Indirect Bilirubin 3.3 H Aspartate Amino Transf (AST/SGOT) 488 H Alanine Aminotransferase (ALT/SGPT) 594 H Alkaline Phosphatase 183 H Total Protein 7.0 # Albumin 3.7 Globulin 3.30 H Albumin/Globulin Ratio 1.12 Triglycerides Level 58 Cholesterol Level 76 L LDL Cholesterol, Calculated 29 HDL Cholesterol 35 Cholesterol/HDL Ratio 2.1 Amylase Level 53 Lipase 28 Medications Medications Current Medications Ondansetron HCl (Zofran Inj) 4 mg Q6H PRN IV NAUSEA AND/OR VOMITING; Start at 16:00 Morphine Sulfate (morphine) 4 mg Q4H PRN IV SEVERE PAIN LEVEL 7-10 Last administered on 04/14/17 12:19; Admin Dose 4 MG; Start 04/13/17 at 16:00 Famotidine (Pepcid) 20 mg Q12 PO Last administered on 04/14/17 09:26; Admin Dose 20 MG; Start 04/13/17 at 21:00 Isosorbide Dinitrate (Isordil) 20 mg TID PO ; Start 04/13/17 at 21:00 Metoprolol Tartrate 12.5 mg 12.5 mg BID PO ; Start 04/13/17 at 21:00 Piperacillin Sod/ Tazobactam Sod 100 ml @ 200 mls/hr Q6 IVPB Last administered on 04/14/17 11:54; Admin Dose 200 MLS/HR; Start 04/13/17 at 18:30 Sodium Chloride (NS) 1,000 ml @ 80 mls/hr [id number] IV Last administered on 04/14 11:54; Admin Dose 80 MLS/HR; Start 04/14/17 at 03:00 Ketorolac Tromethamine (Toradol) 30 mg Q6H PRN IV PAIN Last administered on 11:26; Admin Dose 30 MG; Start 04/14/17 at 11:00; Stop 04/17/17 at 10:59 Salmeterol Xinafoate/ Fluticasone (Advair 250/50 Diskus) 1 inh BID INH ; Start 04/14/17 at 13:30 Acetaminophen (Tylenol Tab) 650 mg Q6H PRN PO PAIN AND OR ELEVATED TEMP Last administered on 04/14/17 13:03; Admin Dose 650 MG; Start 04/14/17 at 12:30 Hydralazine HCl (Apresoline) 10 mg Q6H PRN IV ELEVATED SYSTOLIC BP; Start 04/14 at 12:30 DALLIN STEPHENSON Apr 14, 2017 14:54
[2017-04-14] MEDS: SALMETEROL/FLUTICASONE 250/50 INHA INH SCH ×2 (15:53→21:00)
[2017-04-14] MEDS ORDERED: INDOMETHACIN 50 MG SUPP PR ONE (16:30)
[2017-04-14] MEDS ORDERED: IBUPROFEN 600 MG TAB PO PRN (17:00)
[2017-04-14] MEDS ORDERED: IOHEXOL 300MG/ML 30 ML BTL ONE (19:19)
[2017-04-14] MEDS ORDERED: MEPERIDINE 25 MG INJ IV PRN (19:30)
[2017-04-14] MEDS ORDERED: HYDROmorphONE (0.2 MG/ML) 10ML SYG IV PRN (19:30)
[2017-04-14] MEDS ORDERED: DIPHENHYDRAMINE 50 MG INJ IV PRN (19:30)
[2017-04-14] MEDS ORDERED: LABETALOL HCL 20MG INJ IV PRN (19:30)
[2017-04-14] MEDS ORDERED: FENTAnyl 50 MCG/ML VIAL IV PRN (19:30)
[2017-04-14] MEDS ORDERED: ONDANSETRON 4 MG INJ IV PRN (19:30)
--- NOTE | 2017-04-14 19:31 | RADRPT ---
Vent Rate: 90 bpm RR Interval: 0 msec GA Interval: 214 msec QRS Duration: 188 msec QT Interval: 442 msec QTC Interval: 540 msec P-R-T [place]: 48 - -88 - 35 degrees Sinus rhythm with 1st degree AV block Left axis deviation Right bundle branch block Abnormal ECG Electronically Signed By: Rigoberto Gongora [id number]
[2017-04-14] MEDS ORDERED: ETOMIDATE 20 MG INJ ONE (19:49)
[2017-04-14] MEDS ORDERED: LIDOCAINE 2% (SDV) 5 ML INJ ONE (19:49)
[2017-04-14] MEDS ORDERED: MIDAZOLAM 1 MG/ML 2 ML INJ ONE (19:49)
[2017-04-14] MEDS ORDERED: PHENYLephrine (100 MCG/ML) 5ML SYG ONE ×3 (20:02→20:36)
[2017-04-14] MEDS ORDERED: ONDANSETRON 4 MG INJ ONE (20:09)
--- NOTE | 2017-04-14 20:57 | OPPN ---
Date/Time of Note Date/Time of Note DATE: 04/14/17 TIME: 20:53 Operative Report Preoperative Diagnosis Choledocholithiasis/cholangitis Postoperative Diagnosis Impression: * Choledocholithiasis/biliary obstruction * 1 cm stone impacted distal common bile duct * Post access/precut sphincterotomy * Purulent bile flow * Post standard sphincterotomy * Post balloon dilatation to 10 mm * Post stone removal Plan: * Close observation * N.p.o. until tomorrow * Repeat laboratories in the morning . Operation/Procedure Performed ERCP plus sphincterotomy ERCP plus balloon dilatation of ampulla ERCP plus stone removal Provider: CHALO MINA MD Anesthesia Type: general Estimated blood loss: minimal Transfusion Required: no Specimen: none Grafts/Implants: none Complications: no CHALO MINA MD Apr 14, 2017 20:57
[2017-04-15 00:07] VITALS: BP 113/60; PULSE 102; RESP 20
[2017-04-15 00:16] VITALS: BP 111/64; RESP 16
[2017-04-15 02:02] VITALS: BP 118/72; RESP 18
[2017-04-15] MEDS: SOD CHLORIDE 0.9% 1,000 ML IV SCH ×3 (05:08→21:29)
[2017-04-15] MEDS: PIPER-TAZO 3.375 GM IV (PMX) 100 ML IVPB SCH ×4 (05:14→23:26)
[2017-04-15 05:30] LABS: ABNORMAL IP MESSAGE 1; BASOPHILS % 0.3 % (0.0-2.0); EOSINOPHILS % 0.5 % (0.0-7.0); HEMATOCRIT 36.1 % (42.0-52.0); HEMOGLOBIN 12.4 g/dl (14.0-18.0); LYMPHOCYTES # 0.6 10^3/ul (0.8-2.9); LYMPHOCYTES % 6.5 % (15.0-51.0); MEAN CORPUSCULAR HEMOGLOBIN 31.9 pg (29.0-33.0); MEAN CORPUSCULAR HGB CONC 34.3 g/dl (32.0-37.0); MEAN CORPUSCULAR VOLUME 92.8 fl (82.0-101.0); MEAN PLATELET VOLUME 12.3 fl (7.4-10.4); MONOCYTE # 0.4 10^3/ul (0.3-0.9); NEUTROPHILS % 86.5 % (39.0-77.0); PLATELET COUNT 96 10^3/UL (140-415); POSITIVE DIFF @See below; RED BLOOD COUNT 3.89 10^6/ul (4.70-6.10); RED CELL DISTRIBUTION WIDTH 12.9 % (11.5-14.5); WHITE BLOOD COUNT 8.9 10^3/ul (4.8-10.8)
[2017-04-15 05:41] LABS: ALBUMIN 2.9 g/dl (3.3-4.9); BILIRUBIN,DIRECT 2.2 mg/dl (0.00-0.20); BILIRUBIN,INDIRECT 3.5 mg/dl (0-1.1); BILIRUBIN,TOTAL 5.7 mg/dl (0.2-1.3); TOTAL PROTEIN 5.9 g/dl (6.1-8.1)
[2017-04-15 05:45] LABS: CALCIUM 7.7 mg/dl (8.4-10.2); CREATININE 1.02 mg/dl (0.61-1.24); POTASSIUM 3.3 mmol/L (3.5-5.1)
[2017-04-15] MEDS ORDERED: PANTOPRAZOLE 40 MG INJ IV SCH (06:00)
[2017-04-15 07:00] VITALS: BP 106/67; RESP 18
[2017-04-15] MEDS: SALMETEROL/FLUTICASONE 250/50 INHA INH SCH ×2 (07:48→21:27)
[2017-04-15] MEDS: morphine 2 MG INJ IV PRN ×2 (07:49→23:30)
--- NOTE | 2017-04-15 08:05 | PN ---
Date/Time of Note Date/Time of Note DATE: 04/15/17 TIME: 07:58 Assessment/Plan Lines/Catheters IV Catheter Type (from [facility]): Peripheral IV Orozco in Place (from [facility]): No Assessment/Plan Chief Complaint/Hosp Course 1. Choledocholithiasis: s/p ERCP with sphincterotomy, balloon dilatation of ampulla, stone removal -npo -pain management -pending cholecystectomy 2. Cholelithiasis with cholecystitis: wbc improved, fevers yesterday but afebrile overnight, abdominal pain, gallbladder wall thickening -abx -as above 3. Transaminitis: 2/2 above improving -as above 4. Normocytic anemia: likely dilutional, h/h stable -monitor and transfuse as needed 5. Pancreatic lipomatosis: MRCP: Fatty replacement of the majority the pancreatic parenchyma -weight loss encouraged -medical management 6. Prediabetes with Hga1C:6.4 -diet and lifestyle modification -weight loss encouraged 7. Obesity: BMI 31 -diet and lifestyle modification 8.Asthma history -medical management 9. Hypokalemia -replete and monitor Patient seen and examined in collaboration with Dr. Ryan Monahan. Thank you. Problems: Subjective 24 Hr Interval Summary s/p ercp last night. Feels well. Min abdominal pain. No fevers overnight, chills , cp, sob, cough, palpitations, n/v/d/dysuria. +bowel function Exam/Review of Systems Vital Signs Vitals Vital Signs Date Time Temp Pulse Resp B/P Pulse Ox O2 Delivery O2 Flow Rate FiO2 04/15/17 07:00 98.7 90 18 106/67 98 04/15/17 03:30 2.0 04/15/17 00:07 Nasal Cannula 04/14/17 12:47 21 Intake and Output 04/14/17 04/14/17 04/15/17 15:00 23:00 07:00 Intake Total 900 ml 645 ml 720 ml Output Total 200 ml 600 ml Balance 900 ml 445 ml 120 ml Exam Free Text/Dictation Constitutional: alert, oriented, well developed Psych: anxious Head: atraumatic, normocephalic Eyes: nl lids, nl sclera ENMT: mucosa pink and moist, nl nasal mucosa & septum Respiratory: normal air movement Cardiovascular: nl pulses, regular rate and rhythm, No edema Gastrointestinal: bowel sounds, other (umbilical hernia), min guarding, soft, min tender Genitourinary - Male: nl penis Musculoskeletal: nl extremities to inspection Extremities: normal pulses Neurological: nl mental status, nl speech, nl strength Skin: rash or lesions Results Result Diagram: 04/15/17 0446 04/15/17 0446 SJ HOWELL NP Apr 15, 2017 08:05
[2017-04-15] MEDS: METOPROLOL 25 MG TAB PO SCH ×2 (09:00→21:29)
[2017-04-15] MEDS: ISOSORBIDE DINITRATE 20 MG TAB PO SCH ×3 (09:00→21:28)
[2017-04-15] MEDS: ALBUTEROL/IPRATROPIUM (NEB) 3 ML AMP HHN PRN (09:01)
[2017-04-15 09:15] LABS: ACANTHOCYTES 1+ (0-0); ANISOCYTOSIS 1+ (0-0); EOSINOPHILS % (M) 1 % (0-7); MONOCYTES % (M) 1 % (0-11); PLATELET ESTIMATE DECREASED; POIKILOCYTOSIS 3+ (0-0); POLYCHROMASIA 1+ (0-0)
[2017-04-15] MEDS ORDERED: POTASSIUM CHLORIDE 50 ML IVPB ONE (11:30)
--- NOTE | 2017-04-15 11:36 | PN ---
Date/Time of Note Date/Time of Note DATE: 04/15/17 TIME: 11:21 Assessment/Plan VTE Prophylaxis VTE Prophylaxis Intervention: SCD's Lines/Catheters IV [facility] Type (from [facility]): Peripheral IV Urinary Cath still in place: No Assessment/Plan Chief Complaint/Hosp Course Assessment and plan 1. Abdominal pain. Patient did have MRI of the abdomen that did show mild diffuse intrahepatic and extra hepatic biliary ductal dilation secondary to a 10 mm distal common duct stone. Patient s/p ERCP with sphincterotomy with dilation balloon sweep and removal of stone. Plan for cholecystectomy 2. Transaminitis secondary to #1. Continue IV fluids. Monitor level. 3. Essential hypertension. Continue antihypertensives and adjust as needed 4. History of normal cardiac stress test. Patient aspirin on hold for now due to possibility of ERCP 5. History of asthma. Continue bronchodilators and Advair 6. Obesity. Weight reduction to be advised 7. Hypomagnesemia. will monitor and replete as needed Disposition and plan: Tentative plan for cholecystectomy Discussed plan of care with Dr. Mccabe Problems: Subjective 24 Hr Interval Summary Free Text/Dictation Patient still reports having some minimal abdominal pain. Little better today. No other specific complaints. Exam/Review of Systems Vital Signs Vitals Vital Signs Date Time Temp Pulse Resp B/P Pulse Ox O2 Delivery O2 Flow Rate FiO2 04/15/17 09:02 100 20 95 21 04/15/17 07:00 98.7 106/67 04/15/17 03:30 2.0 04/15/17 00:07 Nasal Cannula Intake and Output 04/14/17 04/14/17 04/15/17 15:00 23:00 07:00 Intake Total 900 ml 645 ml 720 ml Output Total 200 ml 600 ml Balance 900 ml 445 ml 120 ml Exam Constitutional: alert, oriented Psych: nl mood/affect Head: normocephalic Eyes: nl conjunctiva Respiratory: clear to auscultation Cardiovascular: regular rate and rhythm Gastrointestinal: soft Musculoskeletal: nl gait and stance Neurological: [employer] II-XII intact, nl mental status, nl speech Results Result Diagram: 04/15/17 0446 04/15/17 0446 Results 24 hrs Laboratory Tests Test 04/14/17 21:11 04/15/17 04:46 Bedside Glucose 77 White Blood Count 8.9 Red Blood Count 3.89 L Hemoglobin 12.4 L Hematocrit 36.1 L Mean Corpuscular Volume 92.8 Mean Corpuscular Hemoglobin 31.9 Mean Corpuscular Hemoglobin Concent 34.3 Red Cell Distribution Width 12.9 Platelet Count 96 #L Mean Platelet Volume 12.3 H Neutrophils % 86.5 H Segmented Neutrophils % (Manual) 81 H Band Neutrophils % (Manual) 12 H Lymphocytes % 6.5 L Lymphocytes % (Manual) 5 L Monocytes % 5.0 Monocytes % (Manual) 1 Eosinophils % 0.5 Eosinophils % (Manual) 1 Basophils % 0.3 Nucleated Red Blood Cells % 0.0 Neutrophils # (Manual) 7.3 Band Neutrophils # 1.0 H Absolute Lymphocytes (Manual) 0.4 L Lymphocytes # 0.6 L Monocytes # 0.4 Absolute Monocytes (Manual) 0.0 L Eosinophils # 0.0 Basophils # 0.0 Nucleated Red Blood Cells # 0.0 Platelet Estimate DECREASED Polychromasia 1+ Poikilocytosis 3+ Anisocytosis 1+ Acanthocytes 1+ Sodium Level 139 Potassium Level 3.3 L Chloride Level 105 Carbon Dioxide Level 27 Anion Gap 10 # Blood Urea Nitrogen 25 H Creatinine 1.02 Glucose Level 84 Calcium Level 7.7 L Total Bilirubin 5.7 H Direct Bilirubin 2.20 #H Indirect Bilirubin 3.5 H Aspartate Amino Transf (AST/SGOT) 203 #H Alanine Aminotransferase (ALT/SGPT) 358 H Alkaline Phosphatase 131 H Total Protein 5.9 #L Albumin 2.9 L Medications Medications Current Medications Ondansetron HCl (Zofran Inj) 4 mg Q6H PRN IV NAUSEA AND/OR VOMITING; Start at 16:00 Morphine Sulfate (morphine) 4 mg Q4H PRN IV SEVERE PAIN LEVEL 7-10 Last administered on 04/15/17 07:49; Admin Dose 4 MG; Start 04/13/17 at 16:00 Isosorbide Dinitrate (Isordil) 20 mg TID PO ; Start 04/13/17 at 21:00 Metoprolol Tartrate 12.5 mg 12.5 mg BID PO ; Start 04/13/17 at 21:00 Piperacillin Sod/ Tazobactam Sod 100 ml @ 200 mls/hr Q6 IVPB Last administered on 04/15/17 05:14; Admin Dose 200 MLS/HR; Start 04/13/17 at 18:30 Sodium Chloride (NS) 1,000 ml @ 80 mls/hr [id number] IV Last administered on 04/15 05:08; Admin Dose 80 MLS/HR; Start 04/14/17 at 03:00 Ketorolac Tromethamine (Toradol) 30 mg Q6H PRN IV PAIN Last administered on 11:26; Admin Dose 30 MG; Start 04/14/17 at 11:00; Stop 04/17/17 at 10:59 Salmeterol Xinafoate/ Fluticasone (Advair 250/50 Diskus) 1 inh BID INH Last administered on 04/15/17 07:48; Admin Dose 1 INH; Start 04/14/17 at 13:30 Acetaminophen (Tylenol Tab) 650 mg Q6H PRN PO PAIN AND OR ELEVATED TEMP Last administered on 04/14/17 13:03; Admin Dose 650 MG; Start 04/14/17 at 12:30 Hydralazine HCl (Apresoline) 10 mg Q6H PRN IV ELEVATED SYSTOLIC BP; Start 04/14 at 12:30 Famotidine 20 mg 20 mg BID IV ; Start 04/15/17 at 21:00 Potassium Chloride (KCl 20 MEQ/50 ML SW) 50 ml @ 25 mls/hr ONCE ONCE IVPB ; Start 04/15/17 at 11:30; Stop 04/15/17 at 13:29 DALLIN STEPHENSON Apr 15, 2017 11:31
[2017-04-15] MEDS: POTASSIUM CHLORIDE 50 ML IVPB SCH ×2 (14:35→16:33)
[2017-04-15 15:01] VITALS: BP 118/74; RESP 18
[2017-04-15 19:35] VITALS: BP 137/81; RESP 21
[2017-04-15] MEDS ORDERED: metroNIDAZOLE 500 MG/NS (PMX) 100 ML IVPB ONE (21:25)
[2017-04-15] MEDS: FAMOTIDINE 20 MG INJ IV SCH (21:28)
[2017-04-16] VITALS (33 sets, daily range): BP systolic 108–150; BP diastolic 67–91; PULSE 66–94; RESP 17–20
[2017-04-16] MEDS: SOD CHLORIDE 0.9% 1,000 ML IV SCH ×2 (05:00→15:37)
[2017-04-16] MEDS: PIPER-TAZO 3.375 GM IV (PMX) 100 ML IVPB SCH ×3 (05:17→21:09)
[2017-04-16 05:41] LABS: ABNORMAL IP MESSAGE 1; BASOPHILS % 0.3 % (0.0-2.0); EOSINOPHILS # 0.1 10^3/ul (0.0-0.5); EOSINOPHILS % 1.7 % (0.0-7.0); HEMATOCRIT 33.6 % (42.0-52.0); HEMOGLOBIN 11.8 g/dl (14.0-18.0); LYMPHOCYTES # 0.9 10^3/ul (0.8-2.9); LYMPHOCYTES % 11.3 % (15.0-51.0); MEAN CORPUSCULAR HEMOGLOBIN 32.2 pg (29.0-33.0); MEAN CORPUSCULAR HGB CONC 35.1 g/dl (32.0-37.0); MEAN CORPUSCULAR VOLUME 91.8 fl (82.0-101.0); MEAN PLATELET VOLUME 12.4 fl (7.4-10.4); MONOCYTE # 0.8 10^3/ul (0.3-0.9); MONOCYTES % 10.3 % (0.0-11.0); NEUTROPHILS % 75.7 % (39.0-77.0); PLATELET COUNT 93 10^3/UL (140-415); POSITIVE DIFF @See below; RED BLOOD COUNT 3.66 10^6/ul (4.70-6.10); RED CELL DISTRIBUTION WIDTH 12.5 % (11.5-14.5); WHITE BLOOD COUNT 7.7 10^3/ul (4.8-10.8)
[2017-04-16 05:52] LABS: CREATININE 0.79 mg/dl (0.61-1.24); POTASSIUM 3.1 mmol/L (3.5-5.1)
[2017-04-16] MEDS ORDERED: POTASSIUM CHLORIDE 250 ML IVPB ONE (08:30)
--- NOTE | 2017-04-16 08:31 | PN ---
Date/Time of Note Date/Time of Note DATE: 04/16/17 TIME: 08:26 Assessment/Plan Lines/Catheters IV Catheter Type (from [facility]): Peripheral IV Orozco in Place (from [facility]): No Assessment/Plan Chief Complaint/Hosp Course 1. Choledocholithiasis: s/p ERCP with sphincterotomy, balloon dilatation of ampulla, stone removal -npo -pain management -pending cholecystectomy today 2. Cholelithiasis with cholecystitis: wbc improved, fevers yesterday but afebrile overnight, abdominal pain, gallbladder wall thickening -abx -as above 3. Transaminitis: 2/2 above improving -as above 4. Normocytic anemia: likely dilutional, h/h stable -monitor and transfuse as needed 5. Pancreatic lipomatosis: MRCP: Fatty replacement of the majority the pancreatic parenchyma -weight loss encouraged -medical management 6. Prediabetes with Hga1C:6.4 -diet and lifestyle modification -weight loss encouraged 7. Obesity: BMI 31 -diet and lifestyle modification 8.Asthma history -medical management 9. Hypokalemia -replete and monitor Patient seen and examined in collaboration with Dr. Ryan Monahan. Thank you. Problems: Subjective 24 Hr Interval Summary Min nausea without vomiting. Abdominal tenderness. No fevers, chills, diaphoresis overnight. Pending lap tyrone today. Exam/Review of Systems Vital Signs Vitals Vital Signs Date Time Temp Pulse Resp B/P Pulse Ox O2 Delivery O2 Flow Rate FiO2 04/16/17 08:02 98.1 96 18 134/79 96 04/15/17 09:02 21 04/15/17 03:30 2.0 04/15/17 00:07 Nasal Cannula Intake and Output 04/15/17 04/15/17 04/16/17 15:00 23:00 07:00 Intake Total 100 ml 1150 ml 130 ml Output Total 900 ml 800 ml Balance 100 ml 250 ml -670 ml Exam Free Text/Dictation Constitutional: alert, oriented, well developed Psych: anxious Head: atraumatic, normocephalic Eyes: nl lids, nl sclera ENMT: mucosa pink and moist, nl nasal mucosa & septum Respiratory: normal air movement Cardiovascular: nl pulses, regular rate and rhythm, No edema Gastrointestinal: bowel sounds, other (umbilical hernia), min guarding, soft, tender Genitourinary - Male: nl penis Musculoskeletal: nl extremities to inspection Extremities: normal pulses Neurological: nl mental status, nl speech, nl strength Skin: rash or lesions Results Result Diagram: 04/16/17 0510 04/16/17 0510 SJ HOWELL NP Apr 16, 2017 08:31
[2017-04-16] MEDS: FAMOTIDINE 20 MG INJ IV SCH ×2 (09:00→21:15)
[2017-04-16] MEDS: METOPROLOL 25 MG TAB PO SCH ×2 (09:00→21:16)
[2017-04-16] MEDS: ISOSORBIDE DINITRATE 20 MG TAB PO SCH ×3 (09:00→21:16)
[2017-04-16] MEDS: SALMETEROL/FLUTICASONE 250/50 INHA INH SCH ×2 (09:00→21:15)
[2017-04-16 09:12] LABS: BILIRUBIN,DIRECT 1.1 mg/dl (0.00-0.20); BILIRUBIN,INDIRECT 2.4 mg/dl (0-1.1); BILIRUBIN,TOTAL 3.5 mg/dl (0.2-1.3); TOTAL PROTEIN 6.1 g/dl (6.1-8.1)
[2017-04-16] MEDS ORDERED: LIDOCAINE 1% (MPF) 30 ML INJ ONE (09:32)
[2017-04-16] MEDS ORDERED: BUPIVACAINE 0.25%/EPI (SDV) 30 ML INJ ONE (09:34)
[2017-04-16] MEDS ORDERED: PROPOFOL 20 ML ONE (09:53)
[2017-04-16] MEDS ORDERED: SUCCINYLCHOLINE CHLORIDE 100 MG/5 ML SYG IV ONE (09:53)
[2017-04-16] MEDS ORDERED: GLYCOPYRROLATE 0.4 MG INJ ONE ×3 (09:53→11:22)
[2017-04-16] MEDS ORDERED: LIDOCAINE 2% (SDV) 5 ML INJ ONE (09:53)
[2017-04-16] MEDS ORDERED: ROCURONIUM 50 MG INJ ONE (09:53)
[2017-04-16] MEDS ORDERED: NEOSTIGMINE 3 MG/3 ML SYRINGE ONE ×2 (09:53→11:21)
[2017-04-16] MEDS ORDERED: MEPERIDINE 100 MG INJ ONE (09:54)
[2017-04-16] MEDS ORDERED: ONDANSETRON 4 MG INJ IV PRN (10:00)
[2017-04-16] MEDS ORDERED: FENTAnyl 50 MCG/ML VIAL IV PRN ×2 (10:00)
[2017-04-16] MEDS ORDERED: LABETALOL HCL 20MG INJ IV PRN (10:00)
[2017-04-16] MEDS ORDERED: DIPHENHYDRAMINE 50 MG INJ IV PRN (10:00)
[2017-04-16] MEDS ORDERED: HYDROmorphONE (0.2 MG/ML) 10ML SYG IV PRN ×3 (10:00)
[2017-04-16] MEDS ORDERED: MIDAZOLAM 1 MG/ML 2 ML INJ IV PRN (10:00)
[2017-04-16] MEDS ORDERED: MEPERIDINE 25 MG INJ IV PRN (10:00)
[2017-04-16] MEDS ORDERED: hydrALAzine 20 MG INJ IV PRN (10:00)
[2017-04-16] MEDS ORDERED: OXYCODONE/ACETAMINOPHEN (5/325) TAB PO PRN ×2 (10:00)
[2017-04-16] MEDS ORDERED: METOCLOPRAMIDE 10 MG INJ IV PRN (10:00)
[2017-04-16] MEDS ORDERED: EPHEDrine SULFATE 50 MG/5 ML SYG IV PRN (10:00)
[2017-04-16] MEDS ORDERED: LIDOCAINE 1% (MPF) 30 ML INJ INJ ONE (10:20)
[2017-04-16] MEDS ORDERED: BUPIVACAINE 0.25%/EPI (SDV) 30 ML INJ INJ ONE (10:20)
[2017-04-16] MEDS ORDERED: ONDANSETRON 4 MG INJ ONE (11:18)
[2017-04-16] MEDS ORDERED: POTASSIUM CHLORIDE (SR) 20 MEQ TAB PO STA (12:07)
[2017-04-16] MEDS ORDERED: IOHEXOL 300MG/ML 30 ML BTL ONE (12:18)
--- NOTE | 2017-04-16 12:33 | PN ---
Date/Time of Note Date/Time of Note DATE: 04/16/17 TIME: 12:29 Assessment/Plan VTE Prophylaxis VTE Prophylaxis Intervention: SCD's Lines/Catheters IV Catheter Type (from [facility]): Peripheral IV Urinary Cath still in place: No Assessment/Plan Chief Complaint/Hosp Course Assessment and plan 1. Abdominal pain. Patient did have MRI of the abdomen that did show mild diffuse intrahepatic and extra hepatic biliary ductal dilation secondary to a 10 mm distal common duct stone. Patient s/p ERCP with sphincterotomy with dilation balloon sweep and removal of stone. Plan for cholecystectomy 2. Transaminitis secondary to #1. Continue IV fluids. Monitor level. 3. Essential hypertension. Continue antihypertensives and adjust as needed 4. History of normal cardiac stress test. Patient aspirin on hold for now due to possibility of ERCP 5. History of asthma. Continue bronchodilators and Advair 6. Obesity. Weight reduction to be advised 7. Hypomagnesemia. will monitor and replete as needed 8. Hypokalemia. Will replete and check level in AM Disposition and plan: Tentative plan for cholecystectomy 04/16/17. continue with analgesics. replete potassium Discussed plan of care with Dr. Mccabe Problems: Subjective 24 Hr Interval Summary Free Text/Dictation patient for lap tyrone Exam/Review of Systems Vital Signs Vitals Vital Signs Date Time Temp Pulse Resp B/P Pulse Ox O2 Delivery O2 Flow Rate FiO2 04/16/17 08:02 98.1 96 18 134/79 96 04/15/17 09:02 21 04/15/17 03:30 2.0 04/15/17 00:07 Nasal Cannula Intake and Output 04/15/17 04/15/17 04/16/17 15:00 23:00 07:00 Intake Total 100 ml 1150 ml 130 ml Output Total 900 ml 800 ml Balance 100 ml 250 ml -670 ml Exam patient for lap-tyrone Results Result Diagram: 04/16/17 0510 04/16/17 0510 Results 24 hrs Laboratory Tests Test 04/16/17 04:46 04/16/17 05:10 Magnesium Level 2.6 #H Total Bilirubin 3.5 #H Direct Bilirubin 1.10 #H Indirect Bilirubin 2.4 H Aspartate Amino Transf (AST/SGOT) 130 H Alanine Aminotransferase (ALT/SGPT) 241 H Alkaline Phosphatase 133 H Total Protein 6.1 Albumin 3.0 L White Blood Count 7.7 Red Blood Count 3.66 L Hemoglobin 11.8 L Hematocrit 33.6 L Mean Corpuscular Volume 91.8 Mean Corpuscular Hemoglobin 32.2 Mean Corpuscular Hemoglobin Concent 35.1 Red Cell Distribution Width 12.5 Platelet Count 93 L Mean Platelet Volume 12.4 H Neutrophils % 75.7 Lymphocytes % 11.3 L Monocytes % 10.3 Eosinophils % 1.7 Basophils % 0.3 Nucleated Red Blood Cells % 0.0 Neutrophils # (Manual) 5.8 Lymphocytes # 0.9 Monocytes # 0.8 Eosinophils # 0.1 Basophils # 0.0 Nucleated Red Blood Cells # 0.0 Sodium Level 139 Potassium Level 3.1 L Chloride Level 106 Carbon Dioxide Level 25 Anion Gap 11 Blood Urea Nitrogen 23 H Creatinine 0.79 Glucose Level 80 Calcium Level 8.0 L Medications Medications Current Medications Ondansetron HCl (Zofran Inj) 4 mg Q6H PRN IV NAUSEA AND/OR VOMITING; Start at 16:00 Morphine Sulfate (morphine) 4 mg Q4H PRN IV SEVERE PAIN LEVEL 7-10 Last administered on 04/15/17 23:30; Admin Dose 4 MG; Start 04/13/17 at 16:00 Isosorbide Dinitrate (Isordil) 20 mg TID PO Last administered on 04/15/17 21: 28; Admin Dose 20 MG; Start 04/13/17 at 21:00 Metoprolol Tartrate 12.5 mg 12.5 mg BID PO Last administered on 04/15/17 21:29 ; Admin Dose 12.5 MG; Start 04/13/17 at 21:00 Piperacillin Sod/ Tazobactam Sod 100 ml @ 200 mls/hr Q6 IVPB Last administered on 04/16/17 05:17; Admin Dose 200 MLS/HR; Start 04/13/17 at 18:30 Sodium Chloride (NS) 1,000 ml @ 80 mls/hr [id number] IV Last administered on 04/15 21:29; Admin Dose 80 MLS/HR; Start 04/14/17 at 03:00 Ketorolac Tromethamine (Toradol) 30 mg Q6H PRN IV PAIN Last administered on 11:26; Admin Dose 30 MG; Start 04/14/17 at 11:00; Stop 04/17/17 at 10:59 Salmeterol Xinafoate/ Fluticasone (Advair 250/50 Diskus) 1 inh BID INH Last administered on 04/15/17 21:27; Admin Dose 1 INH; Start 04/14/17 at 13:30 Acetaminophen (Tylenol Tab) 650 mg Q6H PRN PO PAIN AND OR ELEVATED TEMP Last administered on 04/14/17 13:03; Admin Dose 650 MG; Start 04/14/17 at 12:30 Hydralazine HCl (Apresoline) 10 mg Q6H PRN IV ELEVATED SYSTOLIC BP; Start 04/14 at 12:30 Famotidine 20 mg 20 mg BID IV Last administered on 04/15/17 21:28; Admin Dose 20 MG; Start 04/15/17 at 21:00 Potassium Chloride (KCl 40 MEQ/250 ML NS) 250 ml @ 62.5 mls/hr ONCE ONCE IVPB ; Start 04/16/17 at 08:30; Stop 04/16/17 at 12:29 DALLIN STEPHENSON Apr 16, 2017 12:33
--- NOTE | 2017-04-16 13:09 | RADRPT ---
PROCEDURE: X-ray, Cholangiogram Operative, Limited. CLINICAL INDICATION: Laparoscopic cholecystectomy. TECHNIQUE: Abdominal x-rays, 2 views prior to and following the administration of contrast during intraoperative cholangiogram. COMPARISON: None. FINDINGS: Contrast opacification of the common bile duct, intrahepatic bile ducts and cystic duct is observed. Mild dilatation of the common bile duct is observed. There is no visible filling defect. Contrast is seen within the descending portion of the duodenum. There is no evidence of contrast extravasat ion. IMPRESSION: Mild common bile duct dilatation without visible filling defect. Contrast flows into the descending portion of the duodenum. No evidence of contrast extravasation. RPTAT: HLST .Amber Ramos MD, MD Date Time Electronically viewed and signed by .Amber Ramos MD, on 04/16/2017 13:08 .T/
[2017-04-16] MEDS: FENTAnyl 50 MCG/ML VIAL IV PRN ×2 (13:38→14:20)
--- NOTE | 2017-04-16 14:54 | PN ---
Date/Time of Note Date/Time of Note DATE: 04/16/17 TIME: 14:46 Assessment/Plan VTE Prophylaxis VTE Prophylaxis Intervention: SCD's Lines/Catheters IV Catheter Type (from [facility]): Peripheral IV Urinary Cath still in place: No Assessment/Plan Assessment/Plan Assessment * Choledocholithiasis * Cholecystolithiasis * S/P ERCP,sphincterotomy ,balloon dilatation of ampulla,extraction of stone * S/P laparoscopic cholecystectomy with intraoperative cholangiogram Plan * Diet defer to surgery * Continue present management * case discussed with Dr Henry * Further orders will depend on clinical course Subjective 24 Hr Interval Summary Free Text/Dictation * Course reviewed with RN * Patient seen and examined * S/P laparoscopic cholecystectomy with intraoperative cholangiogram * ERCP plus sphincterotomy * ERCP plus balloon dilatation of ampulla ERCP plus stone removal No untoward events overnight Exam/Review of Systems Vital Signs Vitals Vital Signs Date Time Temp Pulse Resp B/P Pulse Ox O2 Delivery O2 Flow Rate FiO2 04/16/17 14:19 72 17 125/87 98 Nasal Cannula 2.0 04/16/17 13:33 98.7 04/15/17 09:02 21 Intake and Output 04/15/17 04/15/17 04/16/17 15:00 23:00 07:00 Intake Total 100 ml 1150 ml 130 ml Output Total 900 ml 800 ml Balance 100 ml 250 ml -670 ml Exam Constitutional: alert, oriented Head: atraumatic, normocephalic ENMT: nl external ears & nose, nl nasal mucosa & septum Respiratory: clear to auscultation, normal air movement Cardiovascular: nl pulses, regular rate and rhythm Gastrointestinal: non-tender, soft Musculoskeletal: nl extremities to inspection, nl gait and stance Extremities: normal pulses Neurological: nl mental status, nl speech, nl strength Skin: nl turgor, No rash or lesions Lymph: nl lymph nodes Results Result Diagram: 04/16/17 0510 04/16/17 0510 Results 24 hrs Laboratory Tests Test 04/16/17 04:46 04/16/17 05:10 Magnesium Level 2.6 #H Total Bilirubin 3.5 #H Direct Bilirubin 1.10 #H Indirect Bilirubin 2.4 H Aspartate Amino Transf (AST/SGOT) 130 H Alanine Aminotransferase (ALT/SGPT) 241 H Alkaline Phosphatase 133 H Total Protein 6.1 Albumin 3.0 L White Blood Count 7.7 Red Blood Count 3.66 L Hemoglobin 11.8 L Hematocrit 33.6 L Mean Corpuscular Volume 91.8 Mean Corpuscular Hemoglobin 32.2 Mean Corpuscular Hemoglobin Concent 35.1 Red Cell Distribution Width 12.5 Platelet Count 93 L Mean Platelet Volume 12.4 H Neutrophils % 75.7 Lymphocytes % 11.3 L Monocytes % 10.3 Eosinophils % 1.7 Basophils % 0.3 Nucleated Red Blood Cells % 0.0 Neutrophils # (Manual) 5.8 Lymphocytes # 0.9 Monocytes # 0.8 Eosinophils # 0.1 Basophils # 0.0 Nucleated Red Blood Cells # 0.0 Sodium Level 139 Potassium Level 3.1 L Chloride Level 106 Carbon Dioxide Level 25 Anion Gap 11 Blood Urea Nitrogen 23 H Creatinine 0.79 Glucose Level 80 Calcium Level 8.0 L Medications Medications Current Medications Ondansetron HCl (Zofran Inj) 4 mg Q6H PRN IV NAUSEA AND/OR VOMITING; Start at 16:00 Morphine Sulfate (morphine) 4 mg Q4H PRN IV SEVERE PAIN LEVEL 7-10 Last administered on 04/15/17 23:30; Admin Dose 4 MG; Start 04/13/17 at 16:00 Isosorbide Dinitrate (Isordil) 20 mg TID PO Last administered on 04/15/17 21: 28; Admin Dose 20 MG; Start 04/13/17 at 21:00 Metoprolol Tartrate 12.5 mg 12.5 mg BID PO Last administered on 04/15/17 21:29 ; Admin Dose 12.5 MG; Start 04/13/17 at 21:00 Piperacillin Sod/ Tazobactam Sod 100 ml @ 200 mls/hr Q6 IVPB Last administered on 04/16/17 05:17; Admin Dose 200 MLS/HR; Start 04/13/17 at 18:30 Sodium Chloride (NS) 1,000 ml @ 80 mls/hr [id number] IV Last administered on 04/15 21:29; Admin Dose 80 MLS/HR; Start 04/14/17 at 03:00 Ketorolac Tromethamine (Toradol) 30 mg Q6H PRN IV PAIN Last administered on 11:26; Admin Dose 30 MG; Start 04/14/17 at 11:00; Stop 04/17/17 at 10:59 Salmeterol Xinafoate/ Fluticasone (Advair 250/50 Diskus) 1 inh BID INH Last administered on 04/15/17 21:27; Admin Dose 1 INH; Start 04/14/17 at 13:30 Acetaminophen (Tylenol Tab) 650 mg Q6H PRN PO PAIN AND OR ELEVATED TEMP Last administered on 04/14/17 13:03; Admin Dose 650 MG; Start 04/14/17 at 12:30 Hydralazine HCl (Apresoline) 10 mg Q6H PRN IV ELEVATED SYSTOLIC BP; Start 04/14 at 12:30 Famotidine (Pepcid Iv) 20 mg BID IV Last administered on 04/15/17 21:28; Admin Dose 20 MG; Start 04/15/17 at 21:00 LUIS GAMBLE NP Apr 16, 2017 14:53
--- NOTE | 2017-04-16 14:58 | OPR ---
Date/Time of Note Date/Time of Note DATE: 04/16/17 TIME: 14:50 Operative Report Procedure Date: Apr 16, 2017 Procedure Description Preoperative Diagnosis: Choledocholithiasis status post ERCP Cholecystitis Symptomatic cholelithiasis BMI 31 Postoperative Diagnosis: Abnormal liver color and contour Choledocholithiasis status post ERCP Cholecystitis with significant inflammation Dilated cystic duct Symptomatic cholelithiasis BMI 31 Operation(s) Performed: 1. 3 port laparoscopic cholecystectomy 2. Laparoscopic liver wedge resection biopsy 3. Laparoscopic cholangiogram 4. [place] anesthetic [place], [id number] 5. Laparoscopic guided bilateral transversus abdominis plane block 6. Difficult operation, modifier 22 Surgeon: KALYAN NELSON MD [employer] Driver Sadie Rojo NP Anesthesia: general, local, & regional Anesthesiologist: ELI Raman MD Estimated Blood Loss: 150 ml's Specimens: Liver Gallbladder Tubes/Drains: 19 f milton Complications: None Pt Condition Post Procedure: stable Disposition: PACU Indications: Per consult and progress notes. Risks include but are not limited to bleeding, infection, abscess, seroma, damage to intestines, damage to the liver, damage to biliary tree, hernia formation, chronic pain, biloma, need for reoperations or further surgeries, ID , stroke, PE, DVT, pneumonia, organ failures, or even . Procedure Description: Patient was brought and placed supine on the operating table SCDs were placed, preoperative antibiotics were administered, all pressure points were well-padded , and after induction of anesthesia patient was prepped and draped in usual sterile fashion and timeout was performed. Incision was made in the right upper quadrant and using Optiview port and a 5 mm 0 scope abdomen was entered and insufflated to 15 mmHg with CO2. Laparoscopy was performed with a 5 mm 30 scope. No injuries were identified. The liver looks somewhat abnormal color and has nodularities just above the gallbladder. Gallbladder has significant inflammation and thickening. 12 mm port is placed in subxiphoid under direct visualization followed by another 5 mm port in the right upper quadrant. All port sites were injected with quarter percent Marcaine with epi and 1% lidocaine prior to any incisions. Bilateral transversus abdominis plane block was performed under laparoscopic visualization to aid with pain control intra-and postoperatively. Patient was placed in reverse Trendelenburg and right side up on gallbladder was retracted superolaterally. Gallbladder was very infected thickened and abnormal. Due to the abnormalities of the liver there is concern for malignancy and at this point both wedge and core needle biopsies were performed and frozen section was obtained. Both were negative for malignancy however there is evidence of fibrosis. Decision was made to proceed with cholecystectomy. Using electrocautery and very meticulous gentle blunt dissection I was able to identify the cystic artery and cystic duct. The duct was dilated but tapered into the gallbladder. Since the anatomy was not very well identified decision was made to do a top down approach and separate the gallbladder and the liver. However the gallbladder was intrahepatic and there was significant inflammation and oozing during this part of the dissection. Finally full critical angle view was identified. Artery was clipped twice proximally and once distally and transected. 12 6 confirm there is no injuries were dissecting the correct anatomy decision was made to perform a cholangiogram. Catheter was placed into the gallbladder stump and cholangiography was performed. Contrast filled the cystic duct and then the other ducts which confirmed that we were on the right path. Catheter was removed. Due to the dilated taken abnormal cystic duct it was transected with Endo DAVID white load stapler. The gallbladder was taken off the liver with electrocautery. Hemostasis was obtained. Gallbladder was placed in an Endo Catch bag and removed through the subxiphoid port site. There was complete hemostasis. 2 obtain full hemostasis fibrillar was used and left in place. 19F milton drain was placed through lateral incision to drain the liver and gb sites. 12 mm made port site fascia was closed with Endo Close of an 0 Vicryl in a [id number] manner. Ports and CO2 were removed under direct visualization. Next complete hemostasis. Wounds were thoroughly irrigated skin was closed with 4-0 Monocryl in subcuticular fashion. Dermabond was applied. Patient was extubated and transferred to recovery room in stable condition and all counts were correct and the end of the operation 2. KALYAN NELSON MD Apr 16, 2017 14:58
--- NOTE | 2017-04-16 15:17 | RADRPT ---
PROCEDURE: X-ray fluoroscopy guidance CLINICAL INDICATION: Left knee intraoperative pain procedure. TECHNIQUE: Fluoroscopic guidance was utilized for an intraoperative procedure. Fluoro time: 183 seconds Number of images/sequences: 5 COMPARISON: None available FINDINGS: ERCP device is identified. Biliary dilatation is seen. Pancreatic duct is visualized and is unrema rkable. The bowel pattern is normal. Significant intrahepatic biliary dilatation is not identified . The osseous structures as visualized unremarkable. No other abnormality is present. IMPRESSION: 1. X-ray fluoroscopic guidance utilized for intraoperative procedure. 2. ERCP performed with biliary dilatation. RPTAT: HMJB .Aime Merida MD, Date Time Electronically viewed and signed by .Aime Merida MD, on 04/16/2017 15:17 .B/
[2017-04-16] MEDS: morphine 2 MG INJ IV PRN (15:39)
[2017-04-16] MEDS: KETOROLAC 30 MG INJ IV PRN (18:11)
[2017-04-17] MEDS: KETOROLAC 30 MG INJ IV PRN (00:43)
[2017-04-17] MEDS: PIPER-TAZO 3.375 GM IV (PMX) 100 ML IVPB SCH ×5 (02:00→23:20)
[2017-04-17 02:24] VITALS: BP 143/79; RESP 22
[2017-04-17] MEDS: SOD CHLORIDE 0.9% 1,000 ML IV SCH ×2 (06:00→17:37)
[2017-04-17 06:29] LABS: BASOPHILS % 0.5 % (0.0-2.0); EOSINOPHILS % 0.6 % (0.0-7.0); HEMATOCRIT 33.5 % (42.0-52.0); HEMOGLOBIN 11.3 g/dl (14.0-18.0); LYMPHOCYTES % 14.7 % (15.0-51.0); MEAN CORPUSCULAR HEMOGLOBIN 30.6 pg (29.0-33.0); MEAN CORPUSCULAR HGB CONC 33.7 g/dl (32.0-37.0); MEAN CORPUSCULAR VOLUME 90.8 fl (82.0-101.0); MEAN PLATELET VOLUME 12.3 fl (7.4-10.4); MONOCYTE # 1.1 10^3/ul (0.3-0.9); MONOCYTES % 16.1 % (0.0-11.0); NEUTROPHILS % 67.5 % (39.0-77.0); PLATELET COUNT 107 10^3/UL (140-415); RED BLOOD COUNT 3.69 10^6/ul (4.70-6.10); RED CELL DISTRIBUTION WIDTH 12.7 % (11.5-14.5); WHITE BLOOD COUNT 6.6 10^3/ul (4.8-10.8)
[2017-04-17 06:58] LABS: ALBUMIN 3.1 g/dl (3.3-4.9); ALBUMIN/GLOBULIN RATIO 0.93; BILIRUBIN,DIRECT 0.5 mg/dl (0.00-0.20); BILIRUBIN,INDIRECT 1.6 mg/dl (0-1.1); BILIRUBIN,TOTAL 2.1 mg/dl (0.2-1.3); CALCIUM 7.6 mg/dl (8.4-10.2); CREATININE 0.69 mg/dl (0.61-1.24); POTASSIUM 3.4 mmol/L (3.5-5.1); TOTAL PROTEIN 6.4 g/dl (6.1-8.1)
[2017-04-17] MEDS: morphine 2 MG INJ IV PRN ×5 (08:15→21:01)
[2017-04-17] MEDS: METOPROLOL 25 MG TAB PO SCH ×2 (08:21→21:07)
[2017-04-17 08:22] VITALS: BP 143/84; RESP 18
[2017-04-17] MEDS: ISOSORBIDE DINITRATE 20 MG TAB PO SCH ×3 (08:22→21:07)
[2017-04-17] MEDS: FAMOTIDINE 20 MG INJ IV SCH (08:23)
[2017-04-17] MEDS: SALMETEROL/FLUTICASONE 250/50 INHA INH SCH ×2 (08:23→21:14)
--- NOTE | 2017-04-17 10:33 | PN ---
Date/Time of Note Date/Time of Note DATE: 04/17/17 TIME: 10:20 Assessment/Plan Lines/Catheters IV Catheter Type (from [facility]): Peripheral IV Orozco in Place (from [facility]): No Assessment/Plan Chief Complaint/Hosp Course 1. Choledocholithiasis: s/p ERCP with sphincterotomy, balloon dilatation of ampulla, stone removal; s/p lap tyrone: +flatus/no bm -pain management: ice pack to abd wall -ambulate -is -advance diet as tolerated 2. Cholelithiasis with cholecystitis: s/p lapo tyrone -as above 3. Transaminitis: 2/2 above improving -as above 4. Normocytic anemia: likely dilutional, h/h stable -monitor and transfuse as needed 5. Pancreatic lipomatosis: MRCP: Fatty replacement of the majority the pancreatic parenchyma -weight loss encouraged -medical management 6. Prediabetes with Hga1C:6.4 -diet and lifestyle modification -weight loss encouraged 7. Obesity: BMI 31 -diet and lifestyle modification 8.Asthma history -medical management 9. Hypokalemia -replete and monitor 10. Hypocalcemia with hypoalbuminemia: likely 2/2 malnutrition -nutrition optimization Patient seen and examined in collaboration with Dr. Ryan Monahan. Thank you. Problems: Subjective 24 Hr Interval Summary S/p lap tyrone. c/o min pain in ruq but tolerable. No n/v- tolerating liquid diet. +flatus, no bm.No fevers, chills, diarrhea, dysuria. Exam/Review of Systems Vital Signs Vitals Vital Signs Date Time Temp Pulse Resp B/P Pulse Ox O2 Delivery O2 Flow Rate FiO2 04/17/17 08:22 98.2 73 18 143/84 98 04/17/17 01:29 2.0 04/16/17 17:45 Nasal Cannula 04/15/17 09:02 21 Intake and Output 04/16/17 04/16/17 04/17/17 15:00 23:00 07:00 Intake Total 1000 ml 670 ml 1125 ml Output Total 160 ml 630 ml Balance 840 ml 670 ml 495 ml Exam Free Text/Dictation Constitutional: alert, oriented, well developed Psych: anxious Head: atraumatic, normocephalic Eyes: nl lids, nl sclera ENMT: mucosa pink and moist, nl nasal mucosa & septum Respiratory: normal air movement Cardiovascular: nl pulses, regular rate and rhythm, No edema Gastrointestinal: bowel sounds, other (umbilical hernia), min guarding, soft, tender; incision sites dry, drain with serosanguineous output Genitourinary - Male: nl penis Musculoskeletal: nl extremities to inspection Extremities: normal pulses Neurological: nl mental status, nl speech, nl strength Skin: rash or lesions Results Result Diagram: 04/17/17 0501 04/17/17 0501 SJ HOWELL NP Apr 17, 2017 10:32
[2017-04-17] MEDS ORDERED: HYDR-906 PO (10:44)
[2017-04-17] MEDS ORDERED: ADV25050 INH (10:44)
[2017-04-17] MEDS ORDERED: SENN-53 PO (10:44)
[2017-04-17] MEDS ORDERED: ASPI81TA3 PO (10:44)
[2017-04-17] MEDS ORDERED: ISOS20TA19 PO (10:44)
[2017-04-17] MEDS ORDERED: ALBU18HF INH (10:44)
[2017-04-17] MEDS ORDERED: METO-448 PO (10:44)
[2017-04-17] MEDS ORDERED: IBUPROFEN 600 MG TAB PO PRN (11:00)
--- NOTE | 2017-04-17 12:06 | GILP ---
DATE OF PROCEDURE: 04/15/2017 PROCEDURE: ENDOSCOPIC RETROGRADE CHOLANGIO PANCREATOGRAPHY WITH SPHINCTEROTOMY PLUS BALLOON DILATATION OF THE AMPULLA, PLUS STONE REMOVAL. INSTRUMENT USED: The side viewing panendoscope. TECHNIQUE: After informed consent, with the patient/relatives understanding the procedure, its indications, potential risks and complications, including but not limited to: allergic reaction, bleeding, perforation or infection, and after all pertinent questions were answered to the patients satisfaction, the patient/relatives signed witnessed informed consent. Following this, premedication was administered slowly IV push under careful cardiovascular and respiratory monitoring with pulse oximetry, automatic blood pressure and residential monitor. Once the sedative effect was achieved the patient was place in the prone position in the radiology special procedures suite; the side viewing panendoscope was introduced and advanced under visual control. Careful examination of the upper gastrointestinal tract, both on insertion as well as withdrawal of the instrument disclosed the following findings: ESOPHAGUS: The mucosa of the entire esophagus appears within normal limits. There is no evidence of esophagitis, varices, neoplasm or stricture. No Hiatal Hernia identified. STOMACH: Upon entrance to the stomach air was insufflated, the gastric freeman distended normally. The mucosa of the fundus, body and antrum of the stomach was carefully examined both head-on and on retroflexion, and shows no abnormalities. There is no evidence of gastritis, ulcers or neoplasm. PYLORUS: The pylorus appears patent and within normal limits, with no evidence of gastric outlet obstruction. DUODENUM: The duodenal mucosa was carefully examined in the duodenal bulb as well as the second portion of the duodenum and appears unremarkable with no evidence of duodenitis, ulcer or neoplasm. AMPULLA OF VATER: The ampulla of Vater was identified and appears somewhat prominent. CANNULATION: Attempts at cannulation were encountered with significant difficulty. We required precut access sphincterotomy. With this we were successful in cannulation of the biliary tree. There appears to be a 1 cm stone impacted in the distal common bile duct. Given the size of the stone, and the discrepancy with the size of the papilla, which is rather small. A balloon dilatation with Hurricane balloon 10 mm was performed without difficulty. Following this, large amounts of purulent bile were seen exiting the ampulla, and we easily removed the stone with a balloon catheter. Adequate emptying was noted at the end of the procedure. The instrument was then withdrawn, the patient tolerated the procedure well and was transfer out of the endoscopy suite awake, and in good condition to continue recovery under observation. IMPRESSION: 1. Choledocholithiasis with biliary obstruction and 1 cm stone impacted in the distal common bile duct. Post axis/precut sphincterotomy. 2. Purulent bile consistent with acute cholangitis. 3. Post-standard sphincterotomy extension. 4. Post-wound dilatation to 10 mm. 5. Post-stone removal. PLAN: Close observation. Repeat laboratories. Nothing by mouth until tomorrow. Dictated By: Tolu Henry MD /emily/kailyn /Document#: [id number] CC: Tolu Henry MD;*EndCC*
--- NOTE | 2017-04-17 14:46 | PN ---
Date/Time of Note Date/Time of Note DATE: 04/17/17 TIME: 14:43 Assessment/Plan VTE Prophylaxis VTE Prophylaxis Intervention: SCD's Lines/Catheters IV C[facility]ter Type (from [facility]): Peripheral IV Urinary Cath still in place: No Assessment/Plan Chief Complaint/Hosp Course Assessment and plan 1. Abdominal pain from choledocholithiasis and symptomatic cholelithiasis. Patient did have MRI of the abdomen that did show mild diffuse intrahepatic and extra hepatic biliary ductal dilation secondary to a 10 mm distal common duct stone. Patient s/p ERCP with sphincterotomy with dilation balloon sweep and removal of stone. Patient also status post cholecystectomy for symptomatic cholelithiasis 2. Transaminitis secondary to #1. Continue IV fluids. Monitor level. 3. Essential hypertension. Continue antihypertensives and adjust as needed 4. History of normal cardiac stress test. Patient aspirin on hold for now due to possibility of ERCP 5. History of asthma. Continue bronchodilators and Advair 6. Obesity. Weight reduction to be advised 7. Hypomagnesemia. will monitor and replete as needed 8. Hypokalemia. Will replete and check level in AM 9. Cholangitis. Continue on antibiotic Disposition and plan: Continue with antibiotics for cholangitis. Continue postop care. Discharge when medically stable and cleared by senior consultant Discussed plan of care with Dr. Mccabe Problems: Subjective 24 Hr Interval Summary Free Text/Dictation Reports less pain in the abdomen at this time. Exam/Review of Systems Vital Signs Vitals Vital Signs Date Time Temp Pulse Resp B/P Pulse Ox O2 Delivery O2 Flow Rate FiO2 04/17/17 08:22 98.2 73 18 143/84 98 04/17/17 01:29 2.0 04/16/17 17:45 Nasal Cannula 04/15/17 09:02 21 Intake and Output 04/16/17 04/16/17 04/17/17 14:59 22:59 06:59 Intake Total 1100 ml 670 ml 1125 ml Output Total 160 ml 630 ml Balance 940 ml 670 ml 495 ml Exam Constitutional: alert, oriented Psych: nl mood/affect Head: normocephalic Eyes: nl conjunctiva Neck: supple, No jvd Respiratory: normal air movement Cardiovascular: regular rate and rhythm Gastrointestinal: soft, tender (minimally) Musculoskeletal: nl extremities to inspection Extremities: normal pulses Neurological: PATIENT ACCOUNTS COORDINATOR II-XII intact, nl mental status, nl speech Skin: other (Surgical site on abdomen clean dry and intact with drain in place) Results Result Diagram: 04/17/17 0501 04/17/17 0501 Results 24 hrs Laboratory Tests Test 04/17/17 05:01 White Blood Count 6.6 Red Blood Count 3.69 L Hemoglobin 11.3 L Hematocrit 33.5 L Mean Corpuscular Volume 90.8 Mean Corpuscular Hemoglobin 30.6 Mean Corpuscular Hemoglobin Concent 33.7 Red Cell Distribution Width 12.7 Platelet Count 107 L Mean Platelet Volume 12.3 H Neutrophils % 67.5 Lymphocytes % 14.7 L Monocytes % 16.1 H Eosinophils % 0.6 Basophils % 0.5 Nucleated Red Blood Cells % 0.0 Neutrophils # (Manual) 4.4 Lymphocytes # 1.0 Monocytes # 1.1 H Eosinophils # 0.0 Basophils # 0.0 Nucleated Red Blood Cells # 0.0 Sodium Level 143 Potassium Level 3.4 L Chloride Level 104 Carbon Dioxide Level 27 Anion Gap 15 Blood Urea Nitrogen 24 H Creatinine 0.69 Glucose Level 94 Calcium Level 7.6 L Total Bilirubin 2.1 H Direct Bilirubin 0.50 #H Indirect Bilirubin 1.6 H Aspartate Amino Transf (AST/SGOT) 121 H Alanine Aminotransferase (ALT/SGPT) 200 H Alkaline Phosphatase 121 Total Protein 6.4 Albumin 3.1 L Globulin 3.30 H Albumin/Globulin Ratio 0.93 Medications Medications Current Medications Ondansetron HCl (Zofran Inj) 4 mg Q6H PRN IV NAUSEA AND/OR VOMITING; Start at 16:00 Morphine Sulfate (morphine) 4 mg Q4H PRN IV SEVERE PAIN LEVEL 7-10 Last administered on 04/17/17 12:56; Admin Dose 4 MG; Start 04/13/17 at 16:00 Isosorbide Dinitrate (Isordil) 20 mg TID PO Last administered on 04/17/17 13: 06; Admin Dose 20 MG; Start 04/13/17 at 21:00 Metoprolol Tartrate 12.5 mg 12.5 mg BID PO Last administered on 04/17/17 08:21 ; Admin Dose 12.5 MG; Start 04/13/17 at 21:00 Piperacillin Sod/ Tazobactam Sod 100 ml @ 200 mls/hr Q6 IVPB Last administered on 04/17/17 13:06; Admin Dose 200 MLS/HR; Start 04/13/17 at 18:30 Sodium Chloride (NS) 1,000 ml @ 80 mls/hr [id number] IV Last administered on 04/16 15:37; Admin Dose 80 MLS/HR; Start 04/14/17 at 03:00 Salmeterol Xinafoate/ Fluticasone (Advair 250/50 Diskus) 1 inh BID INH Last administered on 04/17/17 08:23; Admin Dose 1 INH; Start 04/14/17 at 13:30 Acetaminophen (Tylenol Tab) 650 mg Q6H PRN PO PAIN AND OR ELEVATED TEMP Last administered on 04/14/17 13:03; Admin Dose 650 MG; Start 04/14/17 at 12:30 Hydralazine HCl (Apresoline) 10 mg Q6H PRN IV ELEVATED SYSTOLIC BP; Start 04/14 at 12:30 Famotidine (Pepcid Iv) 20 mg BID IV Last administered on 04/17/17 08:23; Admin Dose 20 MG; Start 04/15/17 at 21:00 DALLIN STEPHENSON Apr 17, 2017 14:46
[2017-04-17 15:00] VITALS: BP 146/81; RESP 20
--- NOTE | 2017-04-17 15:25 | PN ---
Date/Time of Note Date/Time of Note DATE: 04/17/17 TIME: 15:23 Assessment/Plan VTE Prophylaxis VTE Prophylaxis Intervention: ambulation Lines/Catheters IV C[facility]ter Type (from [facility] Peripheral IV Urinary Cath still in place: No Assessment/Plan Assessment/Plan Assessment * Choledocholithiasis * Cholecystolithiasis * S/P ERCP,sphincterotomy ,balloon dilatation of ampulla,extraction of stone * S/P laparoscopic cholecystectomy with intraoperative cholangiogram Plan * Diet defer to surgery * will sign off but will follow up as needed * Continue present management * case discussed with Dr Henry * Further orders will depend on clinical course Subjective 24 Hr Interval Summary Free Text/Dictation * Course reviewed * Patient seen and examined * No untoward events overnight Exam/Review of Systems Vital Signs Vitals Vital Signs Date Time Temp Pulse Resp B/P Pulse Ox O2 Delivery O2 Flow Rate FiO2 04/17/17 15:00 98.2 84 20 146/81 93 04/17/17 01:29 2.0 04/16/17 17:45 Nasal Cannula 04/15/17 09:02 21 Intake and Output 04/16/17 04/16/17 04/17/17 15:00 23:00 07:00 Intake Total 1000 ml 670 ml 1125 ml Output Total 160 ml 630 ml Balance 840 ml 670 ml 495 ml Exam Constitutional: alert, oriented Neck: non-tender, supple Respiratory: clear to auscultation, normal air movement Cardiovascular: nl pulses, regular rate and rhythm Gastrointestinal: non-tender, soft Musculoskeletal: nl extremities to inspection, nl gait and stance Extremities: normal pulses Neurological: nl speech, nl strength Skin: nl turgor Results Result Diagram: 04/17/17 0501 04/17/17 0501 Results 24 hrs Laboratory Tests Test 04/17/17 05:01 White Blood Count 6.6 Red Blood Count 3.69 L Hemoglobin 11.3 L Hematocrit 33.5 L Mean Corpuscular Volume 90.8 Mean Corpuscular Hemoglobin 30.6 Mean Corpuscular Hemoglobin Concent 33.7 Red Cell Distribution Width 12.7 Platelet Count 107 L Mean Platelet Volume 12.3 H Neutrophils % 67.5 Lymphocytes % 14.7 L Monocytes % 16.1 H Eosinophils % 0.6 Basophils % 0.5 Nucleated Red Blood Cells % 0.0 Neutrophils # (Manual) 4.4 Lymphocytes # 1.0 Monocytes # 1.1 H Eosinophils # 0.0 Basophils # 0.0 Nucleated Red Blood Cells # 0.0 Sodium Level 143 Potassium Level 3.4 L Chloride Level 104 Carbon Dioxide Level 27 Anion Gap 15 Blood Urea Nitrogen 24 H Creatinine 0.69 Glucose Level 94 Calcium Level 7.6 L Total Bilirubin 2.1 H Direct Bilirubin 0.50 #H Indirect Bilirubin 1.6 H Aspartate Amino Transf (AST/SGOT) 121 H Alanine Aminotransferase (ALT/SGPT) 200 H Alkaline Phosphatase 121 Total Protein 6.4 Albumin 3.1 L Globulin 3.30 H Albumin/Globulin Ratio 0.93 Medications Medications Current Medications Ondansetron HCl (Zofran Inj) 4 mg Q6H PRN IV NAUSEA AND/OR VOMITING; Start at 16:00 Morphine Sulfate (morphine) 4 mg Q4H PRN IV SEVERE PAIN LEVEL 7-10 Last administered on 04/17/17 12:56; Admin Dose 4 MG; Start 04/13/17 at 16:00 Isosorbide Dinitrate (Isordil) 20 mg TID PO Last administered on 04/17/17 13: 06; Admin Dose 20 MG; Start 04/13/17 at 21:00 Metoprolol Tartrate 12.5 mg 12.5 mg BID PO Last administered on 04/17/17 08:21 ; Admin Dose 12.5 MG; Start 04/13/17 at 21:00 Piperacillin Sod/ Tazobactam Sod 100 ml @ 200 mls/hr Q6 IVPB Last administered on 04/17/17 13:06; Admin Dose 200 MLS/HR; Start 04/13/17 at 18:30 Sodium Chloride (NS) 1,000 ml @ 80 mls/hr [id number] IV Last administered on 04/16 15:37; Admin Dose 80 MLS/HR; Start 04/14/17 at 03:00 Salmeterol Xinafoate/ Fluticasone (Advair 250/50 Diskus) 1 inh BID INH Last administered on 04/17/17 08:23; Admin Dose 1 INH; Start 04/14/17 at 13:30 Acetaminophen (Tylenol Tab) 650 mg Q6H PRN PO PAIN AND OR ELEVATED TEMP Last administered on 04/14/17 13:03; Admin Dose 650 MG; Start 04/14/17 at 12:30 Hydralazine HCl (Apresoline) 10 mg Q6H PRN IV ELEVATED SYSTOLIC BP; Start 04/14 at 12:30 Famotidine (Pepcid Iv) 20 mg BID IV Last administered on 04/17/17t 08:23; Admin Dose 20 MG; Start 04/15/17 at 21:00 LUIS GAMBLE NP Apr 17, 2017 15:25
[2017-04-17 19:30] VITALS: BP 167/88; RESP 20
[2017-04-17] MEDS: FAMOTIDINE 20 MG TAB PO SCH (21:07)
[2017-04-17] MEDS: ALBUTEROL/IPRATROPIUM (NEB) 3 ML AMP HHN PRN (21:11)
[2017-04-18] MEDS: morphine 2 MG INJ IV PRN ×2 (01:15→05:26)
[2017-04-18 02:05] VITALS: BP 150/77; RESP 18
[2017-04-18 05:16] LABS: BASOPHILS % 0.6 % (0.0-2.0); EOSINOPHILS # 0.1 10^3/ul (0.0-0.5); EOSINOPHILS % 1.9 % (0.0-7.0); HEMATOCRIT 32.9 % (42.0-52.0); HEMOGLOBIN 11.3 g/dl (14.0-18.0); LYMPHOCYTES # 1.4 10^3/ul (0.8-2.9); LYMPHOCYTES % 20.5 % (15.0-51.0); MEAN CORPUSCULAR HEMOGLOBIN 31.7 pg (29.0-33.0); MEAN CORPUSCULAR HGB CONC 34.3 g/dl (32.0-37.0); MEAN CORPUSCULAR VOLUME 92.2 fl (82.0-101.0); MEAN PLATELET VOLUME 11.9 fl (7.4-10.4); MONOCYTE # 1.4 10^3/ul (0.3-0.9); MONOCYTES % 20.9 % (0.0-11.0); NEUTROPHILS % 54.2 % (39.0-77.0); PLATELET COUNT 123 10^3/UL (140-415); RED BLOOD COUNT 3.57 10^6/ul (4.70-6.10); RED CELL DISTRIBUTION WIDTH 12.9 % (11.5-14.5); WHITE BLOOD COUNT 6.8 10^3/ul (4.8-10.8)
[2017-04-18] MEDS: PIPER-TAZO 3.375 GM IV (PMX) 100 ML IVPB SCH ×3 (05:32→18:00)
[2017-04-18 05:33] LABS: CALCIUM 7.6 mg/dl (8.4-10.2); CREATININE 0.64 mg/dl (0.61-1.24); POTASSIUM 3.3 mmol/L (3.5-5.1)
[2017-04-18] MEDS: SOD CHLORIDE 0.9% 1,000 ML IV SCH ×2 (06:44→19:30)
[2017-04-18 08:16] VITALS: BP 154/87; RESP 18
[2017-04-18] MEDS: FAMOTIDINE 20 MG TAB PO SCH (08:47)
[2017-04-18] MEDS: ISOSORBIDE DINITRATE 20 MG TAB PO SCH ×2 (08:47→15:10)
[2017-04-18] MEDS: SALMETEROL/FLUTICASONE 250/50 INHA INH SCH (08:48)
[2017-04-18] MEDS: METOPROLOL 25 MG TAB PO SCH (08:48)
[2017-04-18] MEDS ORDERED: POTASSIUM CHLORIDE (SR) 20 MEQ TAB PO STA (09:21)
--- NOTE | 2017-04-18 09:24 | PN ---
Date/Time of Note Date/Time of Note DATE: 04/18/17 TIME: 09:19 Assessment/Plan Lines/Catheters IV Catheter Type (from [facility]): Peripheral IV Orozco in Place (from [facility]): No Assessment/Plan Chief Complaint/Hosp Course 1. Choledocholithiasis: s/p ERCP with sphincterotomy, balloon dilatation of ampulla, stone removal; s/p lap tyrone: +flatus/no bm; tolerating solids -pain management: ice pack to abd wall -ambulate -is -may be dc'd home today with drain; to return to office in 1-2 weeks for follow up 2. Cholelithiasis with cholecystitis: s/p lapo tyrone -as above 3. Transaminitis: 2/2 above improving -as above 4. Normocytic anemia: likely dilutional, h/h stable -monitor and transfuse as needed 5. Pancreatic lipomatosis: MRCP: Fatty replacement of the majority the pancreatic parenchyma -weight loss encouraged -medical management 6. Prediabetes with Hga1C:6.4 -diet and lifestyle modification -weight loss encouraged 7. Obesity: BMI 31 -diet and lifestyle modification 8.Asthma history -medical management 9. Hypokalemia -replete and monitor 10. Hypocalcemia with hypoalbuminemia: likely 2/2 malnutrition -nutrition optimization Patient seen and examined in collaboration with Dr. Ryan Monahan. Thank you. Problems: Subjective 24 Hr Interval Summary Feels well. Tolerating solids without nausea/vomiting. +flatus. No fevers, chills, cp, sob, cough, n/v/d/dysuria. Exam/Review of Systems Vital Signs Vitals Vital Signs Date Time Temp Pulse Resp B/P Pulse Ox O2 Delivery O2 Flow Rate FiO2 04/18/17 13:57 98.2 78 18 139/82 92 04/17/17 21:12 21 04/17/17 01:29 2.0 04/16/17 17:45 Nasal Cannula Intake and Output 04/18/17 04/18/17 04/19/17 15:00 23:00 07:00 Intake Total 100 ml 1660 ml Output Total 30 ml Balance 100 ml 1630 ml Exam Free Text/Dictation Constitutional: alert, oriented, well developed Psych: anxious Head: atraumatic, normocephalic Eyes: nl lids, nl sclera ENMT: mucosa pink and moist, nl nasal mucosa & septum Respiratory: normal air movement Cardiovascular: nl pulses, regular rate and rhythm, No edema Gastrointestinal: bowel sounds, min guarding, soft, tender; incision sites dry , drain with serosanguineous output Genitourinary - Male: nl penis Musculoskeletal: nl extremities to inspection Extremities: normal pulses Neurological: nl mental status, nl speech, nl strength Skin: rash or lesions Results Result Diagram: 04/18/1743904/18/17 044 SJ HOWELL NP Apr 18, 2017 09:23
[2017-04-18] MEDS ORDERED: ACETAMINOPHEN 325 MG TAB PO PRN (09:30)
[2017-04-18] MEDS ORDERED: HYDROCODONE/APAP (5/325) TAB PO PRN ×2 (09:30)
[2017-04-18] MEDS ORDERED: CEPH500C PO (12:39)
--- NOTE | 2017-04-18 12:42 | PDOCDIS ---
Discharge Instructions DIAGNOSIS Discharge Diagnosis Cholecystitis. Status post laparoscopic cholecystectomy. CONDITION Patient Condition: Stable HOME CARE INSTRUCTIONS: Diet Instructions: Low Fat /CholesterolSpecial Diet: Low fat/2g na diet FOLLOW UP/APPOINTMENTS Follow-up Plan Ryan Monahan MD Specialty General Surgery Office Address [id number] [place] [address] Office OTHER ORDERS: Other Orders: 1. Low cholesterol diet as tolerated. 2. Keep incisions clean and dry. May shower. Avoid tub baths and swimming for 2 weeks. Use mild soap and pat dry the incisions. 3. Take medications as needed for pain. 4. Call the surgeon or go to the nearest ER if you have severe abdominal pain despite pain medications. 5. Call the surgeon or go to the nearest ER if you notice any bleeding or secretions coming out of the incision sites. Also call the surgeon if you notice any blood in stool, if you have persistent fevers, or any other unusual signs or symptoms. 6. Follow-up with the surgeon Dr. Monahan in 7 days for incision check. 7. Avoid heavy lifting [more than 25 pounds] for 8 weeks. ADONIS BLANCO NP Apr 18, 2017 12:42
[2017-04-18 13:57] VITALS: BP 139/82; RESP 18
--- NOTE | 2017-04-18 16:27 | DS ---
Date/Time of Note Date/Time of Note DATE: 04/18/17 TIME: 16:25 Discharge Summary Admission/Discharge Info Admit Date/Time Apr 15, 2017 at 21:35 Discharge Date/Time Discharge Diagnosis 1. Acute cholecystitis. Status post laparoscopic cholecystectomy. 2. Choledocholithiasis. S/P ERCP and stone removal. 3. Obesity. 4. Prediabetes. 5. Essential hypertension. 6. Asthma. Consults 1. Tolu Henry MD, Gastroenterology. 2. Ryan Monahan MD, General Surgery. Procedures 1. ENDOSCOPIC RETROGRADE CHOLANGIO PANCREATOGRAPHY WITH SPHINCTEROTOMY PLUS BALLOON DILATATION OF THE AMPULLA, PLUS STONE REMOVAL on 04/15/2017. 2. 3-port laparoscopic cholecystectomy, laparoscopic liver wedge resection biopsy, and laparoscopic cholangiogram on 04/16/2017. Hx of Present Illness Reason for admission: Abdominal pain. Consultants 1. Tolu Henry MD, Gastroenterology. 2. Ryan Monahan MD, General Surgery. This is a 66-year-old Maltese-speaking male with past medical history of essential hypertension, asthma, cholelithiasis who had refused gallbladder surgery before, and abnormal cardiac stress test who refused cardiac catheterization before, who came to the emergency room with chief complaint of abdominal pain that has been going on for the past 3 days. The patient verbalized the abdominal pain as diffuse. The patient verbalized the pain radiating to the back. The patient verbalized associated nausea but he denied any vomiting. Patient verbalized that the symptoms are worse after he has anything by mouth. The patient denied any diarrhea. He complained of bloating. He denied any fevers, chills, or diaphoresis. The patient denied any dyspnea. In the emergency room, the patient was noticed to have hyperbilirubinemia with transaminitis. The patient underwent a gallbladder ultrasound that showed possible hypoechoic mass in the region of the pancreatic head. There was also associated dilatation of the common bile duct measuring 13 mm. The abdominal ultrasound revealed cholelithiasis. The patient subsequently underwent a CT scan of the abdomen and pelvis that showed irregular thickened appearance of the gallbladder wall which has contracted appearance with generalized enhancement which is most pronounced involving the gallbladder fundus which is intimately associated inseparable from the adjacent hepatic parenchyma. This could represent gallbladder inflammation or the presence of a gallbladder neoplasm. There is mild intrahepatic biliary ductal dilatation and enlarged appearance of the common bile duct. Hospital Course The patient was admitted to inpatient setting. The patient was kept n.p.o. The patient was started on empiric antibiotics. At the patient was provided with adequate pain control. Gastroenterology and general surgery consult was obtained. The patient underwent an ERCP with sphincterotomy plus balloon dilatation of the ampulla along with stone removal on 04/15/2017. On 04/16/2017, the patient underwent a 3 port laparoscopic cholecystectomy along with laparoscopic liver wedge resection biopsy, and laparoscopic cholangiogram with placement of a SAIGE drain. Postoperatively, the patient was started on a clear liquid diet and the patient's diet was advanced as tolerated to regular consistency diet without any significant gastrointestinal symptoms. The patient 's pathology from gallbladder surgery is pending at this time. The patient's tumor markers were negative. The patient has underlying essential hypertension. He was maintained on antihypertensives for the same. Patient has prediabetes as evidenced by hemoglobin A1c of 6.4. The patient's random blood glucose levels remained stable. And the patient was not started on any sliding scale insulin. The patient was noticed to have some normocytic, normochromic anemia. The patient' s H&H remained stable. The patient continues to have a hyperbilirubinemia with transaminitis. However this is getting better. The patient was cleared by consultants to be discharged home. The patient had purulent bile evident during ERCP that was consistent with acute cholangitis. Hence the patient was continued on antibiotics and the patient will be discharged home on antibiotics. Discharge Instructions 1. Low cholesterol diet as tolerated. 2. Keep incisions clean and dry. May shower. Avoid tub baths and swimming for 2 weeks. Use mild soap and pat dry the incisions. 3. Take medications as needed for pain. 4. Call the surgeon or go to the nearest ER if you have severe abdominal pain despite pain medications. 5. Call the surgeon or go to the nearest ER if you notice any bleeding or secretions coming out of the incision sites. Also call the surgeon if you notice any blood in stool, if you have persistent fevers, or any other unusual signs or symptoms. 6. Follow-up with the surgeon Dr. Monahan in 7 days for incision check. 7. Avoid heavy lifting [more than 25 pounds] for 8 weeks. The patient verbalized understanding of his discharge instructions. At this time I would like to thank all the consultants for seeing the patient, doing the necessary procedures, and providing clinical recommendations. Case discussed with Dr. Mccabe. Home Meds Active Scripts Cephalexin* (Cephalexin*) 500 Mg Capsule, 500 MG PO Q8, #21 CAP Prov:ADONIS BLANCO PCA 04/18/17 Sennosides* (Senna Lax*) 8.6 Mg Tablet, 1 TAB PO Q12H Y for CONSTIPATION, #30 TAB Prov:MANFREDBERNARDDALLIN 04/17/17 Hydrocodone/Acetaminophen ([place] 5-325 Tablet) 1 Each Tablet, 1 EACH PO Q4, #30 TAB Prov:MANFREDDALLIN WAGNER 04/17/17 Salmeterol Xinaf/Fluticasone* (Advair*) 250-50 Diskus Inhaler, 1 INH INH BID, # 1 INH Prov:MANFREDBERNARDDALLIN 04/17/17 Albuterol Sulfate* (Ventolin HFA*) 18 Gm Hfa.aer.ad, 2 PUFF INH Q6H RESP THERAPY Y for SHORTNESS OF BREATH, #1 INH Prov:MANFREDBERNARDDALLIN 04/17/17 Aspirin* (Aspirin* Chew) 81 Mg Tab.chew, 81 MG PO DAILY for 30 Days Prov:DALLIN STEPHENSON 04/17/17 Isosorbide Dinitrate* (Isosorbide Dinitrate*) 20 Mg Tablet, 20 MG PO TID for 30 Days Prov:SEEMADALLIN 04/17/17 Metoprolol Tartrate* (Lopressor*) 25 Mg Tab, 12.5 MG PO BID for 30 Days Prov:DALLIN STEPHENSON 04/17/17 Discontinued Reported Medications Albuterol Sulfate* (Proair HFA*) 8.5 Gm Hfa.aer.ad, PRN 05/05/12 Follow-up Plan Follow-up with Dr. Monahan in 1 week. Primary Care Provider Care Physician No Primary Time spent on discharge: > 30 minutes Pending Labs Laboratory Tests Test 04/18/17 04:40 04/18/17 10:07 White Blood Count 6.810^3/ul (4.8-10.8) Red Blood Count 3.5710^6/ul (4.70-6.10) Hemoglobin 11.3g/dl (14.0-18.0) Hematocrit 32.9% (42.0-52.0) Mean Corpuscular Volume 92.2fl (82.0-101.0) Mean Corpuscular Hemoglobin 31.7pg (29.0-33.0) Mean Corpuscular Hemoglobin Concent 34.3g/dl (32.0-37.0) Red Cell Distribution Width 12.9% (11.5-14.5) Platelet Count 09759^3/UL (140-415) Mean Platelet Volume 11.9fl (7.4-10.4) Neutrophils % 54.2% (39.0-77.0) Lymphocytes % 20.5% (15.0-51.0) Monocytes % 20.9% (0.0-11.0) Eosinophils % 1.9% (0.0-7.0) Basophils % 0.6% (0.0-2.0) Nucleated Red Blood Cells % 0.0/100WBC (0.0-0.0) Neutrophils # (Manual) 410^3/ul (1.7-7.5) Lymphocytes # 1.410^3/ul (0.8-2.9) Monocytes # 1.410^3/ul (0.3-0.9) Eosinophils # 0.110^3/ul (0.0-0.5) Basophils # 0.010^3/ul (0.0-0.1) Nucleated Red Blood Cells # 0.010^3/ul (0.0-0.0) Sodium Level 143mmol/L (135-144) Potassium Level 3.3mmol/L (3.5-5.1) Chloride Level 101mmol/L (97-110) Carbon Dioxide Level 29mmol/L (21-31) Anion Gap 16 (8-16) Blood Urea Nitrogen 15mg/dl (7-20) Creatinine 0.64mg/dl (0.61-1.24) Glucose Level 111mg/dl (70-220) Calcium Level 7.6mg/dl (8.4-10.2) Lab Scanned Report REFERENCE [id number] ADONIS BLANCO NP Apr 18, 2017 16:27
== END 2017-04-18 20:12 | disposition home or self-care (01) | DRG 418 ==
LOC: E/R 09:30 → MS1 13:59 → OBSVTOIN 04-15 21:35
PROVIDERS: ADMIT Internal Medicine; ATTEND Internal Medicine
PROC: 0FC98ZZ Extirpation of Matter from Common Bile Duct, Via Natural or Artificial Opening Endoscopic (ICD-10-PCS; 2017-04-14)
PROC: 0F798ZZ Dilation of Common Bile Duct, Via Natural or Artificial Opening Endoscopic (ICD-10-PCS; 2017-04-14)
PROC: 0FB04ZX Excision of Liver, Percutaneous Endoscopic Approach, Diagnostic (ICD-10-PCS; 2017-04-16)
PROC: BF13YZZ Fluoroscopy of Gallbladder and Bile Ducts using Other Contrast (ICD-10-PCS; 2017-04-16)
PROC: 0FT44ZZ Resection of Gallbladder, Percutaneous Endoscopic Approach (ICD-10-PCS; principal; 2017-04-16 09:30)
DX: K80.62 Calculus of gallbladder and bile duct with acute cholecystitis without obstruction (principal); E46 Unspecified protein-calorie malnutrition; E88.09 Other disorders of plasma-protein metabolism, not elsewhere classified; E83.42 Hypomagnesemia; I10 Essential (primary) hypertension; R10.11 Right upper quadrant pain; J45.909 Unspecified asthma, uncomplicated; E66.9 Obesity, unspecified; Z68.31 Body mass index [BMI] 31.0-31.9, adult; R73.03 Prediabetes; E80.6 Other disorders of bilirubin metabolism; E88.2 Lipomatosis, not elsewhere classified; E87.6 Hypokalemia; E83.51 Hypocalcemia; D64.9 Anemia, unspecified
CPT/HCPCS: 36415; 74178; 74181; 74300; 74330; 76705; 80048; 80053; 80061; 80076; 80307; 82105; 82150; 82378; 82962; 83036; 83690; 83735; 84100; 84439; 84443; 85025; 85610; 85730; 87040; 87086; 93005; 94640; 94664; 96374; 96375; 96376; C9113; G0378; J1170; J1885; J2175; J2250; J2270; J2370; J2405; J2543; J2710; J3010; J3475; J3480; J7030; J7999; Q9967